=== PATIENT | female | born 1980 | race Caucasian/White ===

== ENCOUNTER 2016-12-14 11:24 | Emergency (ER) | payer MEDICAID ==
[2016-12-14 11:37] VITALS: BP 109/75
--- NOTE | 2016-12-14 11:46 | ER Document Report ---
ED Medical Screen (RME) - General Stated Complaint: CONGESTION/RASH Mode of Arrival: Ambulatory Notes: She presents to the emergency department with chest congestion and cough for one week. She reports is making her gag. Denies fever. Reports vomiting from gag. Denies abdominal pain. TRAVEL OUTSIDE OF THE [place] IN LAST 30 DAYS: No - Related Data Allergies/Adverse Reactions: hydromorphone HCl [From Dilaudid] Allergy (Intermediate, Verified 09/05/14 18:46 ) thrush sulfamethoxazole [From Septra] Allergy (Intermediate, Verified 09/05/14 18:46) thrush trimethoprim [From Septra] Allergy (Intermediate, Verified 09/05/14 18:46) thrush duloxetine HCl [From Cymbalta] Allergy (Verified 09/05/14 18:46) milnacipran HCl [From Savella] Allergy (Verified 09/05/14 18:46) Past Medical History Neurological Medical History: Reports: Hx Migraine Renal/ Medical History: Reports: Hx Kidney Stones GI Medical History: Reports: Hx Crohn's Disease, Hx Diverticulitis, Hx Gastroesophageal Reflux Disease Musculoskeltal Medical History: Reports Hx Arthritis, Reports Hx Fibromyalgia Psychiatric Medical History: Reports: Hx Attention Deficit Hyperactivity Disorder, Hx Bipolar Disorder, Hx Obsessive Compulsive Disorder Past Surgical History: Reports: Hx Genitourinary Surgery - Bladder Tack, Hx Hysterectomy - total, Hx Tonsillectomy - Immunizations Hx Diphtheria, Pertussis, Tetanus Vaccination: No Physical Exam - Vital signs Vitals: Temp Pulse Resp BP Pulse Ox 98.1 F 104 H 16 109/75 97 12/14/16 11:36 12/14/16 11:36 12/14/16 11:36 12/14/16 11:36 12/14/16 11:36 Course - Vital Signs Vital signs: Temp Pulse Resp BP Pulse Ox 98.1 F 104 H 16 109/75 97 12/14/16 11:36 12/14/16 11:36 12/14/16 11:36 12/14/16 11:36 12/14/16 11:36
--- NOTE | 2016-12-14 13:08 | ER Document Report ---
ED General - General Chief Complaint: Cough Stated Complaint: CONGESTION/RASH Mode of Arrival: Ambulatory Information source: Patient TRAVEL OUTSIDE OF THE [place] IN LAST 30 DAYS: No - HPI Onset: Last week Onset/Duration: Intermittent - This 36-year-old female presents to the emergency room with a coarse cough sore throat full-size is an dental discomfort which is been ongoing greater than weak. - Related Data Allergies/Adverse Reactions: hydromorphone HCl [From Dilaudid] Allergy (Intermediate, Verified 12/14/16 11:46 ) thrush sulfamethoxazole [From Septra] Allergy (Intermediate, Verified 12/14/16 11:46) thrush trimethoprim [From Septra] Allergy (Intermediate, Verified 12/14/16 11:46) thrush duloxetine HCl [From Cymbalta] Allergy (Verified 12/14/16 11:46) milnacipran HCl [From Savella] Allergy (Verified 12/14/16 11:46) Past Medical History - General Information source: Patient - Social History Smoking Status: Never Smoker Chew tobacco use (# tins/day): No Frequency of alcohol use: None Drug Abuse: None Family History: CAD, CVA, DM, Hyperlipidemia, Hypertension, Malignancy Patient has suicidal ideation: No Patient has homicidal ideation: No Neurological Medical History: Reports: Hx Migraine Renal/ Medical History: Reports: Hx Kidney Stones. Denies: Hx Peritoneal Dialysis GI Medical History: Reports: Hx Crohn's Disease, Hx Diverticulitis, Hx Gastroesophageal Reflux Disease Musculoskeltal Medical History: Reports Hx Arthritis, Reports Hx Fibromyalgia Psychiatric Medical History: Reports: Hx Attention Deficit Hyperactivity Disorder, Hx Bipolar Disorder, Hx Obsessive Compulsive Disorder Past Surgical History: Reports: Hx Genitourinary Surgery - Bladder Tack, Hx Hysterectomy - total, Hx Tonsillectomy - Immunizations Hx Diphtheria, Pertussis, Tetanus Vaccination: No Review of Systems - Review of Systems Constitutional: No symptoms reported EENT: No symptoms reported Cardiovascular: No symptoms reported Respiratory: No symptoms reported Gastrointestinal: No symptoms reported Genitourinary: No symptoms reported Female Genitourinary: No symptoms reported Musculoskeletal: No symptoms reported Skin: No symptoms reported Hematologic/Lymphatic: No symptoms reported Neurological/Psychological: No symptoms reported Physical Exam - Vital signs Vitals: Temp Pulse Resp BP Pulse Ox 98.1 F 104 H 16 109/75 97 12/14/16 11:36 12/14/16 11:36 12/14/16 11:36 12/14/16 11:36 12/14/16 11:36 Interpretation: Normal - General General appearance: Appears well, Alert - HEENT Head: Normocephalic, Atraumatic Eyes: Normal Pupils: PERRL Mouth/Lips: Caries, Dental fracture - Respiratory Respiratory status: No respiratory distress Chest status: Nontender Breath sounds: Rhonchi Chest palpation: Normal - Cardiovascular Rhythm: Regular Heart sounds: Normal auscultation Murmur: No - Abdominal Inspection: Normal Distension: No distension Bowel sounds: Normal Tenderness: Nontender Organomegaly: No organomegaly - Back Back: Normal, Nontender - Extremities General upper extremity: Normal inspection, Nontender, Normal color, Normal ROM , Normal temperature General lower extremity: Normal inspection, Nontender, Normal color, Normal ROM , Normal temperature, Normal weight bearing. No: Gordon's sign - Neurological Neuro grossly intact: Yes Cognition: Normal Orientation: AAOx4 [place] Coma Scale Eye Opening: Spontaneous [place] Coma Scale Verbal: Oriented [place] Coma Scale Motor: Obeys Commands [place] Coma Scale Total: 15 Speech: Normal Motor strength normal: LUE, RUE, LLE, RLE Sensory: Normal - Psychological Associated symptoms: Normal affect, Normal mood - Skin Skin Temperature: Warm Skin Moisture: Dry Skin Color: Normal Course - Vital Signs Vital signs: Temp Pulse Resp BP Pulse Ox 98.1 F 104 H 16 109/75 97 12/14/16 11:36 12/14/16 11:36 12/14/16 11:36 12/14/16 11:36 12/14/16 11:36 Discharge - Discharge Clinical Impression: Pharyngitis Qualifiers: Pharyngitis/tonsillitis etiology: other specified organisms Qualified Code(s): J02.8 - Acute pharyngitis due to other specified organisms Sinusitis Qualifiers: Sinusitis location: pansinusitis Chronicity: acute Recurrence: non-recurrent Qualified Code(s): J01.40 - Acute pansinusitis, unspecified Disposition: HOME, SELF-CARE Additional Instructions: Follow-up with private doctor in 1 to 2 days for final radiology readings please return to the emergency room for any change worsening condition. Follow up with private M.D. for all other routine health care needs.Sinusitis You have sinusitis, an infection of the sinus cavities of the face. The sinuses are air-filled chambers which open into the inside of the nose. Bacteria and pus fill a sinus, causing pain, drainage, and fever. Sinusitis is treated with antibiotics. Often, expectorants (to thin the sinus mucous) or decongestants (to reduce swelling) are prescribed as well. Healing requires seven to 10 days. Avoid chemical fumes, pollens, dusts, and smoke (especially cigarette smoke ). Keep the air humidified in your bedroom and work area and take plenty of liquids by mouth. This condition can be serious if the infection spreads. If your symptoms worsen, or if you develop severe headache, high fever, stiff neck, or a rash, you must call the doctor or return for re-evaluation. Prescriptions: Amox Tr/Potassium Clavulanate [Augmentin 875-125 Tablet] 1 tab PO BID 10 Days Prednisone [Deltasone 20 mg Tablet] 3 tab PO DAILY 5 Days
== END 2016-12-14 13:29 | disposition home or self-care (01) ==
LOC: ER 11:24
DX: J02.9 Acute pharyngitis, unspecified (principal); J01.40 Acute pansinusitis, unspecified; R05 Cough; R09.89 Other specified symptoms and signs involving the circulatory and respiratory systems; K02.9 Dental caries, unspecified; Z88.5 Allergy status to narcotic agent; Z88.1 Allergy status to other antibiotic agents; Z88.8 Allergy status to other drugs, medicaments and biological substances; Z88.6 Allergy status to analgesic agent
CPT/HCPCS: 71020; 99283

== ENCOUNTER 2017-01-22 21:07 | Emergency (ER) | payer MEDICAID ==
[2017-01-22] MEDS ORDERED: ASPIRIN 81 MG TABLET, CHEWABLE PO ONE (21:24)
--- NOTE | 2017-01-22 21:25 | ER Document Report ---
ED Medical Screen (RME) - General Stated Complaint: CHEST PAIN Mode of Arrival: Ambulatory Information source: Patient Notes: Patient complains of left-sided chest pain that goes into her jaw. Patient reports pain started 2 days ago. Patient does complain of some nausea. Patient denies any cough or cold symptoms. hx: Lyme's disease, [place] spotted fever, migraine I have greeted and performed a rapid initial assessment of this patient. A comprehensive ED assessment and evaluation of the patient, analysis of test results and completion of the medical decision making process will be conducted by additional ED providers. TRAVEL OUTSIDE OF THE [place] IN LAST 30 DAYS: No - Related Data Allergies/Adverse Reactions: hydromorphone HCl [From Dilaudid] Allergy (Intermediate, Verified 01/22/17 21:23 ) thrush sulfamethoxazole [From Septra] Allergy (Intermediate, Verified 01/22/17 21:23) thrush trimethoprim [From Septra] Allergy (Intermediate, Verified 01/22/17 21:23) thrush duloxetine HCl [From Cymbalta] Allergy (Verified 01/22/17 21:23) milnacipran HCl [From Savella] Allergy (Verified 01/22/17 21:23) Past Medical History Neurological Medical History: Reports: Hx Migraine Renal/ Medical History: Reports: Hx Kidney Stones. Denies: Hx Peritoneal Dialysis GI Medical History: Reports: Hx Crohn's Disease, Hx Diverticulitis, Hx Gastroesophageal Reflux Disease Musculoskeltal Medical History: Reports Hx Arthritis, Reports Hx Fibromyalgia Psychiatric Medical History: Reports: Hx Attention Deficit Hyperactivity Disorder, Hx Bipolar Disorder, Hx Obsessive Compulsive Disorder Past Surgical History: Reports: Hx Genitourinary Surgery - Bladder Tack, Hx Hysterectomy, Hx Tonsillectomy - Immunizations Hx Diphtheria, Pertussis, Tetanus Vaccination: No Physical Exam - Cardiovascular Rhythm: Regular Heart sounds: S1 appreciated, S2 appreciated Murmur: No
[2017-01-22 22:20] LABS: APPEARANCE,URINE SLIGHTLY-CLOUDY; BILIRUBIN,URINE NEGATIVE (NEGATIVE); GLUCOSE, URINE NEGATIVE (NEGATIVE); KETONES,URINE TRACE mg/dL (NEGATIVE); LEUKOCYTE ESTERASE,URINE LARGE (NEGATIVE); NITRITE,URINE NEGATIVE (NEGATIVE); PROTEIN,URINE 30 mg/dL (NEGATIVE); URINE SPECIFIC GRAVITY 1.038; UROBILINOGEN,URINE NEGATIVE mg/dL (<2.0)
[2017-01-22 22:21] LABS: ALANINE AMINOTRANSFERASE 24 U/L (9-52); ALKALINE PHOSPHATASE 76 U/L (38-126); ANION GAP 12 (5-19); ASPARTATE AMINO TRANSFERASE 15 U/L (14-36); BILIRUBIN,TOTAL 0.4 mg/dL (0.2-1.3); BLOOD UREA NITROGEN 11 mg/dL (7-20); CALCIUM 9.4 mg/dL (8.4-10.2); CARBON DIOXIDE 26 mmol/L (22-30); CHLORIDE 105 mmol/L (98-107); CREATINE KINASE 180 U/L (30-135); CREATININE RESULT 0.91 mg/dL (0.52-1.25); GLUCOSE 96 mg/dL (75-110); LIPASE 35.5 U/L (23-300)
[2017-01-22 22:24] LABS: URINE BARBITURATES SCREEN NEGATIVE; URINE METHADONE SCREEN NEGATIVE; URINE OPIATES LOW UNCONFIRMED POSITIVE; URINE PHENCYCLIDINE SCREEN NEGATIVE
[2017-01-22 22:34] LABS: CREATINE KINASE MB < 0.22 ng/mL (<4.55); TROPONIN I < 0.012 ng/mL
[2017-01-22 22:40] LABS: ABSOLUTE EOSINOPHILS # (AUTO) 0.2 10^3/uL (0.0-0.6); ABSOLUTE MONOCYTES (AUTO) 0.4 10^3/uL (0.1-1.4); ABSOLUTE NEUT (AUTO) 3.8 10^3/uL (1.7-8.2); BASOPHILS % (AUTO) 0.6 % (0-2); EOSINOPHILS % (AUTO) 2.8 % (0-6); HEMATOCRIT 36.3 % (36.0-47.0); HEMOGLOBIN 12.1 g/dL (12.0-15.5); LYMPHOCYTES % (AUTO) 40.2 % (13-45); MEAN CORPUSCULAR HEMOGLOBIN 28.6 pg (27.0-33.4); MEAN CORPUSCULAR HGB CONC 33.4 g/dL (32.0-36.0); MEAN CORPUSCULAR VOLUME 86 fl (80-97); MONOCYTES % (AUTO) 5.6 % (3-13); RED BLOOD COUNT 4.24 10^6/uL (3.72-5.28); RED CELL DISTRIBUTION WIDTH 13.8 % (11.5-14.0); SEGMENTED NEUTROPHILS % (AUTO) 50.8 % (42-78); WHITE BLOOD COUNT 7.5 10^3/uL (4.0-10.5)
--- NOTE | 2017-01-24 08:14 | EKG REPORT ---
SEVERITY:- NORMAL ECG - SINUS RHYTHM : Confirmed by: Ilene Jerome MD 24-Jan-2017 08:13:05
== END 2017-01-23 03:53 | disposition left against medical advice (07) ==
LOC: ER 21:07
DX: R07.9 Chest pain, unspecified (principal); R68.84 Jaw pain; Z88.5 Allergy status to narcotic agent; Z88.1 Allergy status to other antibiotic agents; Z88.8 Allergy status to other drugs, medicaments and biological substances; Z53.20 Procedure and treatment not carried out because of patient's decision for unspecified reasons
CPT/HCPCS: 36415; 71020; 80053; 80307; 81001; 82550; 82553; 83690; 84484; 85025; 93005; 93010; 99281

== ENCOUNTER 2017-02-06 14:15 | Emergency (ER) | payer MEDICAID ==
--- NOTE | 2017-02-06 14:33 | ER Document Report ---
ED Medical Screen (RME) - General Stated Complaint: ABDOMINAL PAIN Notes: 36 yo female c/o epigastric and RLQ pain x 1 week. + hx/o diverticulitic and colitis. + dysuria. + nausea, vomited x 1. no fever. pain aggrevated with eating abdomen soft, generalized tenderness. + guarding TRAVEL OUTSIDE OF THE [place] IN LAST 30 DAYS: No - Related Data Allergies/Adverse Reactions: hydromorphone HCl [From Dilaudid] Allergy (Intermediate, Verified 01/22/17 21:23 ) thrush sulfamethoxazole [From Septra] Allergy (Intermediate, Verified 01/22/17 21:23) thrush trimethoprim [From Septra] Allergy (Intermediate, Verified 01/22/17 21:23) thrush duloxetine HCl [From Cymbalta] Allergy (Verified 01/22/17 21:23) milnacipran HCl [From Savella] Allergy (Verified 01/22/17 21:23) Past Medical History Neurological Medical History: Reports: Hx Migraine Renal/ Medical History: Reports: Hx Kidney Stones. Denies: Hx Peritoneal Dialysis GI Medical History: Reports: Hx Crohn's Disease, Hx Diverticulitis, Hx Gastroesophageal Reflux Disease Musculoskeltal Medical History: Reports Hx Arthritis, Reports Hx Fibromyalgia Psychiatric Medical History: Reports: Hx Attention Deficit Hyperactivity Disorder, Hx Bipolar Disorder, Hx Obsessive Compulsive Disorder Past Surgical History: Reports: Hx Genitourinary Surgery - Bladder Tack, Hx Hysterectomy, Hx Tonsillectomy - Immunizations Hx Diphtheria, Pertussis, Tetanus Vaccination: No
[2017-02-06 14:47] LABS: ABSOLUTE BASOPHILS # (AUTO) 0.1 10^3/uL (0.0-0.2); ABSOLUTE EOSINOPHILS # (AUTO) 0.1 10^3/uL (0.0-0.6); ABSOLUTE LYMPHOCYTES (AUTO) 2.3 10^3/uL (0.5-4.7); ABSOLUTE MONOCYTES (AUTO) 0.5 10^3/uL (0.1-1.4); ABSOLUTE NEUT (AUTO) 6.1 10^3/uL (1.7-8.2); BASOPHILS % (AUTO) 0.7 % (0-2); EOSINOPHILS % (AUTO) 0.8 % (0-6); HEMOGLOBIN 14.4 g/dL (12.0-15.5); HGB HCT DIFFERENCE 0.2; LYMPHOCYTES % (AUTO) 25.8 % (13-45); MEAN CORPUSCULAR HEMOGLOBIN 28.4 pg (27.0-33.4); MEAN CORPUSCULAR HGB CONC 33.6 g/dL (32.0-36.0); MEAN CORPUSCULAR VOLUME 85 fl (80-97); MONOCYTES % (AUTO) 5.4 % (3-13); RED BLOOD COUNT 5.08 10^6/uL (3.72-5.28); RED CELL DISTRIBUTION WIDTH 13.4 % (11.5-14.0); SEGMENTED NEUTROPHILS % (AUTO) 67.3 % (42-78); WHITE BLOOD COUNT 9.1 10^3/uL (4.0-10.5)
[2017-02-06 14:55] LABS: APPEARANCE,URINE CLOUDY; BILIRUBIN,URINE NEGATIVE (NEGATIVE); GLUCOSE, URINE NEGATIVE (NEGATIVE); KETONES,URINE NEGATIVE (NEGATIVE); LEUKOCYTE ESTERASE,URINE LARGE (NEGATIVE); NITRITE,URINE NEGATIVE (NEGATIVE); PROTEIN,URINE 30 mg/dL (NEGATIVE); URINE SPECIFIC GRAVITY 1.025; UROBILINOGEN,URINE NEGATIVE mg/dL (<2.0)
[2017-02-06 15:05] LABS: ALANINE AMINOTRANSFERASE 31 U/L (9-52); ALBUMIN 4.9 g/dL (3.5-5.0); ALKALINE PHOSPHATASE 84 U/L (38-126); ANION GAP 16 (5-19); ASPARTATE AMINO TRANSFERASE 16 U/L (14-36); BILIRUBIN,TOTAL 0.6 mg/dL (0.2-1.3); BLOOD UREA NITROGEN 9 mg/dL (7-20); CALCIUM 10.5 mg/dL (8.4-10.2); CARBON DIOXIDE 23 mmol/L (22-30); CHLORIDE 104 mmol/L (98-107); CREATININE RESULT 0.85 mg/dL (0.52-1.25); GLUCOSE 119 mg/dL (75-110); LIPASE 87.1 U/L (23-300); POTASSIUM 4.2 mmol/L (3.6-5.0); SODIUM 142.9 mmol/L (137-145); TOTAL PROTEIN 8.3 g/dL (6.3-8.2)
[2017-02-06] MEDS ORDERED: NORMAL SALINE 1000 ML 1,000 ML IV PRN (15:47)
[2017-02-06] MEDS ORDERED: ONDANSETRON HCL INJ/PF 4 MG/2 ML SDV IV ONE (15:47)
[2017-02-06] MEDS ORDERED: CEFTRIAXONE 1 GM/D5W RTU 50 ML IV ONE (15:48)
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
[2017-02-06] MEDS ORDERED: TRAMADOL HCL 50 MG TABLET PO ONE (17:57)
== END 2017-02-06 17:00 | disposition home or self-care (01) ==
LOC: ER 14:15
DX: N12 Tubulo-interstitial nephritis, not specified as acute or chronic (principal); R10.9 Unspecified abdominal pain; R10.11 Right upper quadrant pain; Z88.3 Allergy status to other anti-infective agents; Z87.442 Personal history of urinary calculi; Z90.710 Acquired absence of both cervix and uterus
CPT/HCPCS: 99284; 96375; 96365; 36415; 83690; 84703; 85025; 80053; 81001; 74177; J2405; J7030; J0696

== ENCOUNTER 2017-03-19 09:04 | Emergency (ER) | payer MEDICAID ==
[2017-03-19] MEDS ORDERED: ONDANSETRON 4 MG TAB.RAPDIS SL ONE (10:24)
[2017-03-19] MEDS ORDERED: OXYCODONE-ACETAMINOPHEN 5-325 MG TABLET PO ONE (10:24)
--- NOTE | 2017-03-19 10:27 | ER Document Report ---
ED Medical Screen (RME) - General Chief Complaint: Abdominal Pain Stated Complaint: BACK PAIN AND BLOOD IN STOOL Time seen by provider: 10:26 Mode of Arrival: Ambulatory Information source: Patient TRAVEL OUTSIDE OF THE [place] IN LAST 30 DAYS: No - HPI Patient complains to provider of: abdominal pain, bloody mucousy stool Onset: Other - 2-3 days Onset/Duration: Gradual, Persistent, Worse Quality of pain: Achy, Cramping Severity: Moderate Pain Level: 3 Associated Symptoms: Diarrhea, Nausea Exacerbated by: Food Relieved by: Denies Similar symptoms previously: Yes Recently seen / treated by doctor: No Notes: 03/19/17 10:26 Patient is a 36-year-old female who presents to the emergency room complaining of crampy diffuse lower abdominal pain, bloody mucousy stools, with diarrhea, history of similar symptoms with diverticulitis in the past, patient reports a history of a full hysterectomy - Related Data Allergies/Adverse Reactions: hydromorphone HCl [From Dilaudid] Allergy (Intermediate, Verified 03/19/17 09:10 ) thrush sulfamethoxazole [From Septra] Allergy (Intermediate, Verified 03/19/17 09:10) thrush trimethoprim [From Septra] Allergy (Intermediate, Verified 03/19/17 09:10) thrush duloxetine HCl [From Cymbalta] Allergy (Verified 03/19/17 09:10) milnacipran HCl [From Savella] Allergy (Verified 03/19/17 09:10) Past Medical History Neurological Medical History: Reports: Hx Migraine Renal/ Medical History: Reports: Hx Kidney Stones. Denies: Hx Peritoneal Dialysis GI Medical History: Reports: Hx Crohn's Disease, Hx Diverticulitis, Hx Gastroesophageal Reflux Disease Musculoskeltal Medical History: Reports Hx Arthritis, Reports Hx Fibromyalgia Psychiatric Medical History: Reports: Hx Attention Deficit Hyperactivity Disorder, Hx Bipolar Disorder, Hx Obsessive Compulsive Disorder Past Surgical History: Reports: Hx Genitourinary Surgery - Bladder Tack, Hx Hysterectomy, Hx Tonsillectomy - Immunizations Hx Diphtheria, Pertussis, Tetanus Vaccination: No Physical Exam - Vital signs Vitals: Temp Pulse Resp BP Pulse Ox 98.6 F 86 18 140/99 H 99 03/19/17 09:12 03/19/17 09:12 03/19/17 09:12 03/19/17 09:12 03/19/17 09:12 Course - Vital Signs Vital signs: Temp Pulse Resp BP Pulse Ox 98.6 F 86 18 140/99 H 99 03/19/17 09:12 03/19/17 09:12 03/19/17 09:12 03/19/17 09:12 03/19/17 09:12
[2017-03-19 10:53] LABS: ABSOLUTE EOSINOPHILS # (AUTO) 0.1 10^3/uL (0.0-0.6); ABSOLUTE MONOCYTES (AUTO) 0.4 10^3/uL (0.1-1.4); ABSOLUTE NEUT (AUTO) 6.3 10^3/uL (1.7-8.2); BASOPHILS % (AUTO) 0.6 % (0-2); EOSINOPHILS % (AUTO) 1.4 % (0-6); HEMATOCRIT 38.9 % (36.0-47.0); HGB HCT DIFFERENCE 0.1; LYMPHOCYTES % (AUTO) 22.7 % (13-45); MEAN CORPUSCULAR HEMOGLOBIN 28.4 pg (27.0-33.4); MEAN CORPUSCULAR HGB CONC 33.4 g/dL (32.0-36.0); MEAN CORPUSCULAR VOLUME 85 fl (80-97); RED BLOOD COUNT 4.57 10^6/uL (3.72-5.28); RED CELL DISTRIBUTION WIDTH 13.9 % (11.5-14.0); SEGMENTED NEUTROPHILS % (AUTO) 71.3 % (42-78); WHITE BLOOD COUNT 8.8 10^3/uL (4.0-10.5)
[2017-03-19 10:55] LABS: APPEARANCE,URINE CLEAR; BILIRUBIN,URINE NEGATIVE (NEGATIVE); GLUCOSE, URINE NEGATIVE (NEGATIVE); KETONES,URINE NEGATIVE (NEGATIVE); LEUKOCYTE ESTERASE,URINE SMALL (NEGATIVE); NITRITE,URINE NEGATIVE (NEGATIVE); PROTEIN,URINE NEGATIVE (NEGATIVE); URINE SPECIFIC GRAVITY 1.028; UROBILINOGEN,URINE NEGATIVE mg/dL (<2.0)
[2017-03-19 11:15] LABS: ALANINE AMINOTRANSFERASE 19 U/L (9-52); ALBUMIN 4.8 g/dL (3.5-5.0); ALKALINE PHOSPHATASE 81 U/L (38-126); ANION GAP 13 (5-19); ASPARTATE AMINO TRANSFERASE 14 U/L (14-36); BILIRUBIN,DIRECT 0.3 mg/dL (0.0-0.4); BILIRUBIN,TOTAL 0.6 mg/dL (0.2-1.3); BLOOD UREA NITROGEN 14 mg/dL (7-20); CALCIUM 9.9 mg/dL (8.4-10.2); CARBON DIOXIDE 25 mmol/L (22-30); CHLORIDE 106 mmol/L (98-107); CREATININE RESULT 0.66 mg/dL (0.52-1.25); GLUCOSE 111 mg/dL (75-110); LIPASE 42.8 U/L (23-300); POTASSIUM 4.6 mmol/L (3.6-5.0); SODIUM 143.9 mmol/L (137-145)
--- NOTE | 2017-03-19 11:36 | ER Document Report ---
ED GI/ - General Chief Complaint: Abdominal Pain Stated Complaint: BACK PAIN AND BLOOD IN STOOL Time seen by provider: 11:31 Mode of Arrival: Ambulatory Information source: Patient Notes: 36-year-old female presents to ED for complaints of cramping and diffuse to upper and lower abdominal pain with nausea and mucous bloody stools with diarrhea. States she has a history of diverticulitis with similar symptoms. She was seen in the pit patient in triage and given pain medicine and nausea medicine will follow-up with the labs. TRAVEL OUTSIDE OF THE [place] IN LAST 30 DAYS: No - HPI Patient complains to provider of: Abdominal pain, Diarrhea - Blood in her stools Onset: Other - 2-3 days Timing/Duration: Persistent Quality of pain: Achy, Cramping Severity at maximum: Severe Severity in ED: Moderate Pain Level: 3 Location: Other - Generalized Vaginal bleeding (Compared to normal period): None Menstrual period history: Post-menopausal - Hysterectomy Associated symptoms: Nausea Exacerbated by: Movement, Walking Relieved by: Denies Similar symptoms previously: Yes Recently seen / treated by doctor: No - Related Data Allergies/Adverse Reactions: hydromorphone HCl [From Dilaudid] Allergy (Intermediate, Verified 03/19/17 09:10 ) thrush sulfamethoxazole [From Septra] Allergy (Intermediate, Verified 03/19/17 09:10) thrush trimethoprim [From Septra] Allergy (Intermediate, Verified 03/19/17 09:10) thrush duloxetine HCl [From Cymbalta] Allergy (Verified 03/19/17 09:10) milnacipran HCl [From Savella] Allergy (Verified 03/19/17 09:10) Past Medical History - General Information source: Patient - Social History Smoking Status: Never Smoker Cigarette use (# per day): No Chew tobacco use (# tins/day): No Smoking Education Provided: No Frequency of alcohol use: None Drug Abuse: None Occupation: leighesser Lives with: Family - Son Family History: CAD, CVA, Hyperlipidemia, Hypertension, Malignancy, Thyroid Disfunction Patient has suicidal ideation: No Patient has homicidal ideation: No - Past Medical History Cardiac Medical History: Reports: None Pulmonary Medical History: Reports: None EENT Medical History: Reports: None Neurological Medical History: Reports: Hx Migraine Endocrine Medical History: Reports: None Renal/ Medical History: Reports: Hx Kidney Stones Malignancy Medical History: Reports: None GI Medical History: Reports: Hx Crohn's Disease, Hx Diverticulitis, Hx Gastroesophageal Reflux Disease, Hx Colonoscopy, Hx Endoscopy Musculoskeltal Medical History: Reports Hx Arthritis, Reports Hx Fibromyalgia Skin Medical History: Reports None Psychiatric Medical History: Reports: Hx Attention Deficit Hyperactivity Disorder, Hx Obsessive Compulsive Disorder Traumatic Medical History: Reports: None Past Surgical History: Reports: Hx Genitourinary Surgery - Bladder Tack, Hx Hysterectomy, Hx Tonsillectomy - Immunizations Hx Diphtheria, Pertussis, Tetanus Vaccination: No Review of Systems - Review of Systems Constitutional: No symptoms reported EENT: No symptoms reported Cardiovascular: No symptoms reported Respiratory: No symptoms reported Gastrointestinal: Abdominal pain, Diarrhea, Nausea Genitourinary: No symptoms reported Female Genitourinary: No symptoms reported Musculoskeletal: No symptoms reported Skin: No symptoms reported Hematologic/Lymphatic: No symptoms reported Neurological/Psychological: No symptoms reported -: Yes All other systems reviewed and negative Physical Exam - Vital signs Vitals: Temp Pulse Resp BP Pulse Ox 98.6 F 86 18 140/99 H 99 03/19/17 09:12 03/19/17 09:12 03/19/17 09:12 03/19/17 09:12 03/19/17 09:12 Interpretation: Normal - General General appearance: Appears well, Alert - HEENT Head: Normocephalic, Atraumatic Eyes: Normal Pupils: PERRL - Respiratory Respiratory status: No respiratory distress Chest status: Nontender Breath sounds: Normal Chest palpation: Normal - Cardiovascular Rhythm: Regular Heart sounds: Normal auscultation Murmur: No - Abdominal Inspection: Normal Distension: No distension Bowel sounds: Normal Tenderness: Tender - Generalized Organomegaly: No organomegaly - Back Back: Normal, Nontender - Extremities General upper extremity: Normal inspection, Nontender, Normal color, Normal ROM , Normal temperature General lower extremity: Normal inspection, Nontender, Normal color, Normal ROM , Normal temperature, Normal weight bearing. No: Gordon's sign - Neurological Neuro grossly intact: Yes Cognition: Normal Orientation: AAOx4 [place] Coma Scale Eye Opening: Spontaneous [place] Coma Scale Verbal: Oriented [place] Coma Scale Motor: Obeys Commands [place] Coma Scale Total: 15 Speech: Normal Motor strength normal: LUE, RUE, LLE, RLE Sensory: Normal - Psychological Associated symptoms: Normal affect, Normal mood - Skin Skin Temperature: Warm Skin Moisture: Dry Skin Color: Normal Course - Vital Signs Vital signs: Temp Pulse Resp BP Pulse Ox 98.1 F 75 16 130/86 H 97 03/19/17 13:46 03/19/17 13:46 03/19/17 13:46 03/19/17 13:46 03/19/17 13:46 - Laboratory Result Diagrams: 03/19/17 10:30 03/19/17 10:30 Laboratory results interpreted by me: 03/19/17 03/19/17 10:30 10:30 Glucose 111 H Ur Leukocyte Esterase SMALL H Discharge - Discharge Clinical Impression: Abdominal pain Qualifiers: Abdominal location: generalized Qualified Code(s): R10.84 - Generalized abdominal pain Condition: Stable Disposition: HOME, SELF-CARE Instructions: Family Physicians / Practices Additional Instructions: ABDOMINAL PAIN: There are many causes of abdominal pain. Pain can mean a serious problem requiring surgery (such as appendicitis). It can also be an innocent problem that goes away on its own (such as a viral infection). Often, time must pass to determine the cause of pain. The physician does not feel that hospitalization is necessary, at present. Things may change within the next 24 hours. Call the doctor or come back for re- examination if any problems occur, such as: (1) Pain that becomes more severe, steady, or becomes concentrated in one specific area. Also, pain that is more severe with movement or coughing. (2) Vomiting that persists or becomes more frequent. (3) Blood in the vomitus, urine, or bowel movements. Blood in the stool may have a tarry or black appearance. (4) Shaking chills or fever greater than 100 degrees F. (5) The abdomen becomes more distended or swollen. (6) Bowel movements cease. (7) Failure to improve as expected. Ciprofloxacin You have been given an antibacterial agent, ciprofloxacin (Cipro). This medicine is not related to the penicillins, sulfas, cephalosporins, or tetracyclines. It is often given to patients who are allergic to these drugs. It has been chosen for you either because other drugs are not appropriate, or because of the nature of your problem. Cipro should not be taken with antacids, as these can decrease its effectiveness. It can be taken without regard to meals. CIPRO SHOULD NOT BE TAKEN BY CHILDREN, NURSING WOMEN, OR WOMEN. Although Cipro is usually well-tolerated, common side effects can include nausea and diarrhea. Contact your doctor if you experience any unusual symptoms while on this medication, such as joint pain or swelling, shortness of breath, wheezing, faintness, or hives. Metronidazole Metronidazole (Flagyl) has been prescribed. This medication is used to kill a type of bacteria called anaerobes, and protozoan parasites such as trichomonas and Giardia. Flagyl often causes a metallic taste in the mouth and mild nausea. Do not use alcohol in any form with Flagyl (including alcohol in medication elixirs). Flagyl interacts with alcohol to cause flushing, palpitations, headache, stomach cramps, and vomiting. Do not use Flagyl if you are taking Antabuse (disulfiram). Call the doctor at once if you develop rash, shortness of breath, itching, or lightheadedness. ANTINAUSEA MEDICATION: You have been given a medication to suppress nausea and vomiting. This type of medication can be given as a shot, pill, or suppository. It will usually last for many hours. Pills and shots usually last six to eight hours, suppositories last about 12 hours. For the typical illness, only one or two doses of the medication may be necessary. Mild lightheadedness may occur. This type of medicine can cause drowsiness. Do not drive or operate dangerous machinery while under its influence. Do not mix with alcohol. See your doctor at once if you have muscle spasms or tightness, or uncontrollable motions (particularly of the neck, mouth, or jaw). Persistent vomiting or severe lightheadedness should also be evaluated by the physician. Intravenous (IV) Fluids As part of your care today, you received intravenous (IV) fluids. IV fluids are administered to patients who are dehydrated or to those who have certain chemical (electrolyte) abnormalities that need correcting. FOLLOW-UP CARE: If you have been referred to a physician for follow-up care, call the physician s office for an appointment as you were instructed or within the next two days. If you experience worsening or a significant change in your symptoms, notify the physician immediately or return to the Emergency Department at any time for re-evaluation. Prescriptions: Ciprofloxacin HCl [Cipro 500 mg Tablet] 500 mg PO BID #20 tablet Metronidazole [Flagyl 500 mg Tablet] 500 mg PO BID #14 tablet Promethazine HCl [Phenergan 25 mg Tablet] 25 mg PO Q6H PRN #15 tablet PRN Reason: Forms: Elevated Blood Pressure
[2017-03-19 13:52] VITALS: BP 130/86
== END 2017-03-19 14:00 | disposition home or self-care (01) ==
LOC: ER 09:04
DX: R10.84 Generalized abdominal pain (principal); R11.0 Nausea; R19.7 Diarrhea, unspecified; K92.1 Melena; Z87.19 Personal history of other diseases of the digestive system; Z90.710 Acquired absence of both cervix and uterus; Z88.5 Allergy status to narcotic agent; Z88.1 Allergy status to other antibiotic agents; Z88.6 Allergy status to analgesic agent; Z87.442 Personal history of urinary calculi
CPT/HCPCS: 99284; 36415; 87086; 83690; 85025; 80053; 81001; S0119

== ENCOUNTER 2017-04-18 16:32 | Emergency (ER) | payer MEDICAID ==
[2017-04-18] MEDS ORDERED: LIDOCAINE 1% INJ-PF (10 MG/ML) 30 ML SDV INJ ONE (17:11)
[2017-04-18] MEDS ORDERED: DIPH/PERTUSS(ACELL)/TETANUS VAC/PF 0.5 ML SYR (>=10YO) IM ONE (17:11)
[2017-04-18] MEDS ORDERED: OXYCODONE-ACETAMINOPHEN 5-325 MG TABLET PO ONE (17:11)
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
[2017-04-18 19:53] VITALS: BP 121/89
== END 2017-04-18 19:53 | disposition home or self-care (01) ==
LOC: ER 16:32
PROC: 0HQ1XZZ Repair Face Skin, External Approach (ICD-10-PCS; principal; 2017-04-18)
DX: S09.12XA Laceration of muscle and tendon of head, initial encounter (principal); S01.119A Laceration without foreign body of unspecified eyelid and periocular area, initial encounter; S01.81XA Laceration without foreign body of other part of head, initial encounter; S16.1XXA Strain of muscle, fascia and tendon at neck level, initial encounter; S40.022A Contusion of left upper arm, initial encounter; S40.021A Contusion of right upper arm, initial encounter; S50.10XA Contusion of unspecified forearm, initial encounter; S50.00XA Contusion of unspecified elbow, initial encounter; S60.512A Abrasion of left hand, initial encounter; Y04.2XXA Assault by strike against or bumped into by another person, initial encounter; Y00.XXXA Assault by blunt object, initial encounter; Y92.009 Unspecified place in unspecified non-institutional (private) residence as the place of occurrence of the external cause; Z88.5 Allergy status to narcotic agent; Z88.1 Allergy status to other antibiotic agents; Z88.6 Allergy status to analgesic agent
CPT/HCPCS: 12013; 99284; 90471; 70450; 70486; 72125; 90715; J3490

== ENCOUNTER 2017-04-28 21:07 | Emergency (ER) | payer MEDICAID ==
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
[2017-04-28] MEDS ORDERED: ONDANSETRON ODT 4 MG TAB (6 TAB/DSPK) PO PRN (23:33)
[2017-04-28] MEDS ORDERED: ACETAMINOPHEN 325 MG TABLET PO ONE (23:33)
[2017-04-29 00:04] VITALS: BP 117/82
== END 2017-04-28 23:50 | disposition home or self-care (01) ==
LOC: ER 21:07
DX: S06.0X0D Concussion without loss of consciousness, subsequent encounter (principal); S01.112D Laceration without foreign body of left eyelid and periocular area, subsequent encounter; S01.21XD Laceration without foreign body of nose, subsequent encounter; X58.XXXD Exposure to other specified factors, subsequent encounter; Z88.5 Allergy status to narcotic agent; Z88.1 Allergy status to other antibiotic agents; Z88.6 Allergy status to analgesic agent
CPT/HCPCS: 99283

== ENCOUNTER 2017-09-23 19:58 | Emergency (ER) | payer OTHER, MEDICAID ==
[2017-09-23] MEDS ORDERED: IBUPROFEN 600 MG TABLET PO ONE (20:20)
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
[2017-09-23] MEDS ORDERED: LIDOCAINE 5% (700 MG) TRANSDERMAL ADH..PATCH TP ONE (21:21)
[2017-09-23] MEDS ORDERED: MORPHINE SULFATE IR 15 MG TABLET PO ONE (21:21)
[2017-09-23] MEDS ORDERED: MORPHINE SULFATE 10 MG/ML INJ IV PRN (21:31)
[2017-09-23] MEDS ORDERED: ACETAMINOPHEN 325 MG TABLET PO ONE (21:31)
[2017-09-23] MEDS ORDERED: HYDROCODONE/ACETAMINOPHEN 5-325 MG 6 TAB/DSPK PO PRN (21:33)
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
--- NOTE | 2017-09-23 22:05 | RADIOLOGY REPORT (SQ) ---
EXAM DESCRIPTION: TIBIA FIBULA RIGHT COMPLETED DATE/TIME: 09/23/2017 9:52 pm REASON FOR STUDY: full eval of tib fi b COMPARISON: None. NUMBER OF VIEWS: Two views. TECHNIQUE: Two radiographic images acquired of the right tibia and fibula to include the knee and an kle in at least one projection. LIMITATIONS: None. FINDINGS: MINERALIZATION: Normal. BONES: The previously described fracture of the proximal tibia is again identified. No other evidenc e for fracture is seen. SOFT TISSUES: No obvious swelling or foreign body. OTHER: No other significant finding. IMPRESSION: The previously described fracture of the proximal tibia is again identified. No other e vidence for fracture or dislocation is seen. TECHNICAL DOCUMENTATION: JOB ID: [id number] [employer]- All Rights Reserved
[2017-09-23 23:01] VITALS: BP 116/83
== END 2017-09-23 23:01 | disposition home or self-care (01) ==
LOC: ER 19:58
PROC: 2W3LX1Z Immobilization of Right Lower Extremity using Splint (ICD-10-PCS; principal; 2017-09-23)
DX: S82.101A Unspecified fracture of upper end of right tibia, initial encounter for closed fracture (principal); M25.551 Pain in right hip; V28.4XXA Motorcycle driver injured in noncollision transport accident in traffic accident, initial encounter; Z88.3 Allergy status to other anti-infective agents
CPT/HCPCS: 99284; 96374; 73552; 73560; 72170; 73590; 29505; J2270

== ENCOUNTER 2017-09-27 11:47 | Emergency (ER) | payer MEDICAID ==
[2017-09-27] MEDS ORDERED: MORPHINE SULFATE 10 MG/ML INJ IV ONE (13:13)
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
[2017-09-27] MEDS: MORPHINE SULFATE 10 MG/ML INJ IV PRN ×3 (14:33→17:33)
--- NOTE | 2017-09-27 17:30 | RADIOLOGY REPORT (SQ) ---
EXAM DESCRIPTION: MRI RT LOWER JOINT WITHOUT COMPLETED DATE/TIME: 09/27/2017 4:57 pm REASON FOR STUDY: right knee injury COMPARISON: Radiograph from 09/23/2017 TECHNIQUE: Rightknee images acquired and stored on PACS. Multiplanar images include fat sensitive s equences as T1, water sensitive sequences as FST2 or STIR, cartilage sensitive sequences as FSPD, and gradient echo sequences. LIMITATIONS: None. FINDINGS: JOINT AND BURSAE: Lipohemarthrosis BONE CORTEX AND MARROW: Again seen is a lateral tibial plateau fracture which extends to the medial c ortex in oblique infection. There is a 17 mm loose bone fragment with approximately 4 mm of depressi on. Bones otherwise intact. ACL: Intact. No degeneration or ganglion cyst. PCL: Intact. MCL: Intact. No periligamentous edema or fluid. LCL: Intact. No periligamentous edema or fluid. MEDIAL MENISCUS: Contusion/ intrasubstance degeneration involving the posterior horn without discrete tear. LATERAL MENISCUS: Horizontal tear involving the anterior horn of the lateral meniscus which surfaces superiorly. MEDIAL COMPARTMENT: Cartilage preserved. LATERAL COMPARTMENT: Cartilage preserved. PATELLA: No chondromalacia. No subchondral cysts. Medial and lateral retinacula intact. EXTENSOR MECHANISM: Intact. Quadriceps and patella tendons normal. SOFT TISSUES: Diffuse subcutaneous edema. OTHER: No other significant finding. IMPRESSION: AGAIN SEEN IS A TIBIAL PLATEAU FRACTURE DETAILED ABOVE. HORIZONTAL TEAR ANTERIOR HORN LATERAL MENISCUS WITH CONTUSION/DEGENERATION POSTERIOR HORN MEDIAL MENI SCUS. NO TENDON, LIGAMENT, OR MUSCLE TEAR. TECHNICAL DOCUMENTATION: JOB ID: [id number] [employer]- All Rights Reserved
[2017-09-27 18:35] VITALS: BP 124/87
== END 2017-09-27 18:35 | disposition home or self-care (01) ==
LOC: ER 11:47
DX: S82.141D Displaced bicondylar fracture of right tibia, subsequent encounter for closed fracture with routine healing (principal); M25.561 Pain in right knee; W05.1XXD Fall from non-moving nonmotorized scooter, subsequent encounter; Z88.5 Allergy status to narcotic agent; Z88.1 Allergy status to other antibiotic agents; Z88.6 Allergy status to analgesic agent
CPT/HCPCS: 96376; 99283; 96374; 73721; J2270

== ENCOUNTER 2017-10-07 09:44 | Inpatient (IN) | payer MEDICAID ==
[2017-10-04 11:49] LABS: ABSOLUTE BASOPHILS # (AUTO) 0.1 10^3/uL (0.0-0.2); ABSOLUTE EOSINOPHILS # (AUTO) 0.2 10^3/uL (0.0-0.6); ABSOLUTE LYMPHOCYTES (AUTO) 3.1 10^3/uL (0.5-4.7); ABSOLUTE MONOCYTES (AUTO) 0.4 10^3/uL (0.1-1.4); EOSINOPHILS % (AUTO) 1.9 % (0-6); HEMATOCRIT 38.7 % (36.0-47.0); HGB HCT DIFFERENCE 0.3; LYMPHOCYTES % (AUTO) 35.1 % (13-45); MEAN CORPUSCULAR HEMOGLOBIN 28.7 pg (27.0-33.4); MEAN CORPUSCULAR HGB CONC 33.5 g/dL (32.0-36.0); MEAN CORPUSCULAR VOLUME 86 fl (80-97); MONOCYTES % (AUTO) 4.5 % (3-13); RED BLOOD COUNT 4.52 10^6/uL (3.72-5.28); SEGMENTED NEUTROPHILS % (AUTO) 57.5 % (42-78); WHITE BLOOD COUNT 8.8 10^3/uL (4.0-10.5)
--- NOTE | 2017-10-04 11:56 | RADIOLOGY REPORT (SQ) ---
EXAM DESCRIPTION: CHEST PA/LATERAL COMPLETED DATE/TIME: 10/04/2017 11:41 am REASON FOR STUDY: PRE-OP COMPARISON: 01/22/2017 EXAM PARAMETERS: NUMBER OF VIEWS: two views TECHNIQUE: Digital Frontal and Lateral radiographic views of the chest acquired. RADIATION DOSE: NA LIMITATIONS: none FINDINGS: LUNGS AND PLEURA: No opacities, masses or pneumothorax. No pleural effusion. MEDIASTINUM AND HILAR STRUCTURES: No masses or contour abnormalities. HEART AND VASCULAR STRUCTURES: Heart normal size. No evidence for failure. BONES: No acute findings. HARDWARE: None in the chest. OTHER: No other significant finding. IMPRESSION: NO SIGNIFICANT RADIOGRAPHIC FINDING IN THE CHEST. TECHNICAL DOCUMENTATION: JOB ID: [id number] [employer]- All Rights Reserved
[2017-10-04 11:57] LABS: APPEARANCE,URINE CLOUDY; BILIRUBIN,URINE NEGATIVE (NEGATIVE); CALCIUM OXALATE CRYSTALS,URINE MODERATE /HPF; GLUCOSE, URINE NEGATIVE (NEGATIVE); KETONES,URINE NEGATIVE (NEGATIVE); LEUKOCYTE ESTERASE,URINE LARGE (NEGATIVE); NITRITE,URINE NEGATIVE (NEGATIVE); PROTEIN,URINE 30 mg/dL (NEGATIVE); URINE SPECIFIC GRAVITY 1.046; UROBILINOGEN,URINE NEGATIVE mg/dL (<2.0)
[2017-10-04 12:14] LABS: ANION GAP 19 (5-19); BLOOD UREA NITROGEN 15 mg/dL (7-20); CALCIUM 9.8 mg/dL (8.4-10.2); CARBON DIOXIDE 20 mmol/L (22-30); CHLORIDE 106 mmol/L (98-107); CREATININE RESULT 0.78 mg/dL (0.52-1.25); GLUCOSE 99 mg/dL (75-110); POTASSIUM 4.3 mmol/L (3.6-5.0); SODIUM 144.7 mmol/L (137-145)
--- NOTE | 2017-10-05 11:41 | EKG REPORT ---
SEVERITY:- NORMAL ECG - SINUS RHYTHM : Confirmed by: Yadira Ross 05-Oct-2017 11:39:49
[~2017-10-07 09:44] MED LIST: CEFAZOLIN 2 GM/D5W RTU 2 GM/50 ML RTUPB IV PRN; LACTATED RINGERS 1000 ML IV PRN; LIDOCAINE 0.5% INJ-PF (5 MG/ML) 50 ML SDV SUBCUT PRN
[2017-10-07] MEDS ORDERED: FENTANYL CITRATE INJ/PF 250 MCG/5 ML AMPULE ONE (11:36)
[2017-10-07] MEDS ORDERED: LIDOCAINE 2% INJ-PF (20 MG/ML) 10 ML AMPUL ONE (11:36)
[2017-10-07] MEDS ORDERED: MIDAZOLAM 2 MG/2 ML INJ ONE (11:36)
[2017-10-07] MEDS ORDERED: ONDANSETRON HCL INJ/PF 4 MG/2 ML SDV ONE (11:37)
[2017-10-07] MEDS ORDERED: PROPOFOL INJ 200 MG/20 ML VIAL IV ONE (11:37)
[2017-10-07] MEDS ORDERED: FENTANYL CITRATE INJ/PF 100 MCG/2 ML AMPUL ONE (11:38)
[2017-10-07] MEDS ORDERED: HYDROMORPHONE HCL INJ/PF 2 MG/ML AMPULE ONE (11:38)
[2017-10-07] MEDS ORDERED: MORPHINE SULFATE 10 MG/ML INJ ONE (11:39)
[2017-10-07] MEDS ORDERED: MEPERIDINE HCL/PF INJ 25 MG/1 ML DISP.SYRIN IV PRN (12:29)
[2017-10-07] MEDS ORDERED: PROMETHAZINE HCL INJ 25 MG/1 ML VIAL IV PRN ×2 (12:29)
[2017-10-07] MEDS ORDERED: ONDANSETRON HCL INJ/PF 4 MG/2 ML SDV IV PRN (12:29)
[2017-10-07] MEDS ORDERED: DIPHENHYDRAMINE HCL 50 MG/ML VIAL IV PRN ×2 (12:29→13:24)
[2017-10-07] MEDS ORDERED: FENTANYL CITRATE INJ/PF 100 MCG/2 ML AMPUL IV PRN ×3 (12:29)
[2017-10-07] MEDS ORDERED: BUPIVACAINE HCL 0.25% /EPINEPHRINE INJ/PF 30 ML SDV ONE (13:03)
--- NOTE | 2017-10-07 13:11 | Operative Report ---
Operative Report DATE OF SURGERY: 10/07/17 PREOPERATIVE DIAGNOSIS: Right tibial plateau fracture OPERATION: Open reduction internal fixation right tibial plateau fracture SURGEON: BURAK RUIZ 1ST RARE/ENDANGERED SPECIES SPECIALIST: SILVIA HANDLEY ANESTHESIA: GA ESTIMATED BLOOD LOSS: 75 PROCEDURE: With the patient supine Afrin table the right lower extreme was prepped and draped in sterile fashion. Limb was elevated for exsanguination tourniquet inflated 350 torr. Hockey type incision was made over the lateral proximal tibia and sharp dissection used to the incision down to the muscular fascia. The muscular fascia was elevated off the proximal anterior lateral aspect of the tibia revealing underlying metaphysis. Soft tissues and elevated proximally to the base of the meniscus. The joint is visualized. The anterior third of the articular surface is crushed and depressed. This is elevated back to an anatomic position and 5 cc of OsteoSet is used for subchondral support. Subsequently 2x4.0 millimeter screws were placed to help support the articular surface. At this point the tourniquet is deflated the wound is irrigated. Hemostasis obtained with electrocautery. The soft tissue layer including the rim of the meniscus is meticulously repaired. The muscle fascia followed by subcu and skin repaired primarily as well. A sterile compressive dressing and knee immobilizer applied and the patient's return to the PACU in satisfactory condition.
[2017-10-07] MEDS ORDERED: OXYCODONE HCL IR 5 MG TABLET PO PRN (13:24)
[2017-10-07] MEDS ORDERED: MORPHINE SULFATE 10 MG/ML INJ IV PRN ×2 (13:24)
[2017-10-07] MEDS ORDERED: ONDANSETRON 4 MG TAB.RAPDIS PO PRN (13:24)
[2017-10-07] MEDS: MORPHINE SULFATE 10 MG/ML INJ ONE ×2 (13:25→13:55)
[2017-10-07] MEDS: MEPERIDINE HCL/PF INJ 25 MG/1 ML DISP.SYRIN ONE ×2 (13:32→13:37)
[2017-10-07] MEDS: FENTANYL CITRATE INJ/PF 100 MCG/2 ML AMPUL ONE ×2 (13:35→13:45)
--- NOTE | 2017-10-07 14:05 | RADIOLOGY REPORT (SQ) ---
EXAM DESCRIPTION: NO CHG FLUORO; KNEE RIGHT 2 VIEWS COMPLETED DATE/TIME: 10/07/2017 1:45 pm; 10/07/2017 1:46 pm REASON FOR STUDY: ORIF RT KNEE( TIBIAL PLATEAU) ASSISTED WITH FLUORO I NOR S82.142A DISPLACED BICON DYLAR FRACTURE OF LEFT TIBIA, INIT S82.101D UNSP FX UPPER END OF R TIBIA, SUBS FOR CLOS FX W RO COMPARISON: None. FLUOROSCOPY TIME: 0.1 minute Total of 2 images saved to PACS. TECHNIQUE: Intra-operative images acquired during surgical procedure to evaluate progress. NUMBER OF IMAGES: Total of 2 LIMITATIONS: None. FINDINGS: 2 orthopedic screws across tibial plateau fracture from a lateral approach. Alignment is anatomic. IMPRESSION: IMAGE(S) OBTAINED DURING PROCEDURE. COMMENT: Quality ID [id number]: Final reports for procedures using fluoroscopy that document radiation exp osure indices, or exposure time and number of fluorographic images (if radiation exposure indices are not available) Please consult full operative report of the attending physician for description of the procedure. TECHNICAL DOCUMENTATION: JOB ID: [id number] [employer]- All Rights Reserved
[2017-10-07] MEDS: MORPHINE SULFATE 10 MG/ML INJ IV PRN ×5 (15:40→23:28)
[2017-10-07] MEDS ORDERED: SUCCINYLCHOLINE CHLORIDE INJ 200 MG/10 ML VIAL ONE (15:41)
[2017-10-07] MEDS ORDERED: (PENDING PHARMACY ID) (Dextroamphetamine/Amphetamine [Adderall 30 Mg Tablet] 30 MG) PO SCH (18:00)
[2017-10-07] MEDS ORDERED: ACETAMINOPHEN 100 ML IV ONE (19:24)
[2017-10-07] MEDS ORDERED: PREGABALIN 75 MG CAPSULE PO SCH (22:00)
[2017-10-07] MEDS ORDERED: ZOLPIDEM TARTRATE 20 MG PO SCH (22:00)
[2017-10-07] MEDS: ZOLPIDEM TARTRATE 5 MG TABLET PO SCH (23:26)
[2017-10-07] MEDS: SERTRALINE HCL 50 MG TABLET PO SCH (23:28)
[2017-10-07] MEDS: IBUPROFEN 800 MG in NORMAL SALINE 250 ML IV SCH (23:28)
[2017-10-07] MEDS: ALPRAZOLAM 0.5 MG TABLET PO SCH (23:28)
[2017-10-08] MEDS: IBUPROFEN 800 MG in NORMAL SALINE 250 ML IV SCH ×3 (06:23→21:17)
[2017-10-08] MEDS: LANSOPRAZOLE 30 MG TAB.RAP.DR PO SCH (06:23)
[2017-10-08] MEDS: ALPRAZOLAM 0.5 MG TABLET PO SCH ×3 (06:23→21:18)
[2017-10-08] MEDS: MORPHINE SULFATE 10 MG/ML INJ IV PRN ×5 (06:41→21:17)
--- NOTE | 2017-10-08 07:01 | PDOC PROGRESS REPORT ---
Subjective Progress Note for:: 10/08/17 Subjective:: Patient complains of unrelenting pain about the right knee Physical Exam Vital Signs: Temp Pulse Resp BP Pulse Ox 37.3 C 72 18 124/76 98 10/07/17 19:00 10/07/17 19:00 10/07/17 19:00 10/07/17 19:00 10/07/17 19:00 Intake & Output 10/06/17 10/07/17 10/08/17 06:59 06:59 06:59 Intake Total 1400 Output Total 105 Balance 1295 General appearance: PRESENT: mild distress Head exam: PRESENT: normocephalic Respiratory exam: PRESENT: unlabored Cardiovascular exam: PRESENT: RRR Pulses: PRESENT: +1 pedal pulses bilateral Vascular exam: PRESENT: normal capillary refill GI/Abdominal exam: PRESENT: soft Rectal exam: PRESENT: deferred Extremities exam: PRESENT: other - Right lower extremity dressing clean dry and intact. Distal neurovascular examination is intact. Neurological exam: PRESENT: alert, awake, oriented to person, oriented to place , oriented to time, oriented to situation. ABSENT: motor sensory deficit Psychiatric exam: PRESENT: appropriate affect, normal mood. ABSENT: homicidal ideation, suicidal ideation Skin exam: PRESENT: dry, intact, warm. ABSENT: cyanosis, rash Results Laboratory Results: 10/04/17 11:05 10/04/17 11:05 Impressions: Chest X-Ray 10/04/17 11:16 IMPRESSION: NO SIGNIFICANT RADIOGRAPHIC FINDING IN THE CHEST. Fluoroscopy 10/07/17 00:00 IMPRESSION: IMAGE(S) OBTAINED DURING PROCEDURE. Knee X-Ray 10/07/17 00:00 IMPRESSION: IMAGE(S) OBTAINED DURING PROCEDURE. Status: Imported from PACS Assessment & Plan - Diagnosis (1) Closed fracture of lateral portion of right tibial plateau Is this a current diagnosis for this admission?: Yes Plan: Patient postop day 1 from an open reduction internal fixation of a right lateral tibial plateau fracture. Postoperative course was notable for unrelenting pain. Pain medication will be increased this morning and physical therapy will be consulted for touchdown weightbearing restriction of the right lower extremity. (2) Urinary tract infection Is this a current diagnosis for this admission?: Yes Plan: Preoperative laboratory evaluation is notable for urine with a high leukocyte esterase. Patient be treated for UTI empirically. - Time Time Spent with patient: 15-24 minutes Anticipated discharge: Home with Homehealth Within: within 24 hours
[2017-10-08] MEDS: MORPHINE SULFATE 10 MG/ML INJ IM PRN ×2 (08:24→11:59)
[2017-10-08] MEDS ORDERED: AMOXICILLIN TR/POT CLAVULANATE 500-125 MG TAB PO ONE (09:00)
[2017-10-08] MEDS: OXYCODONE HCL IR 5 MG TABLET PO PRN ×2 (09:37→17:16)
[2017-10-08] MEDS: SERTRALINE HCL 50 MG TABLET PO SCH ×2 (09:37→21:17)
[2017-10-08] MEDS: AMOXICILLIN TR/POT CLAVULANATE 500-125 MG TAB PO SCH ×2 (13:31→21:18)
[2017-10-08] MEDS: ZOLPIDEM TARTRATE 5 MG TABLET PO SCH (21:18)
[2017-10-09] MEDS: OXYCODONE HCL IR 5 MG TABLET PO PRN ×3 (04:09→17:14)
[2017-10-09] MEDS: MORPHINE SULFATE 10 MG/ML INJ IV PRN ×4 (04:09→15:03)
[2017-10-09] MEDS: LANSOPRAZOLE 30 MG TAB.RAP.DR PO SCH (06:30)
[2017-10-09] MEDS: ALPRAZOLAM 0.5 MG TABLET PO SCH ×3 (06:30→21:15)
[2017-10-09] MEDS: IBUPROFEN 800 MG in NORMAL SALINE 250 ML IV SCH ×2 (06:30→16:31)
[2017-10-09] MEDS: AMOXICILLIN TR/POT CLAVULANATE 500-125 MG TAB PO SCH ×3 (06:30→21:14)
--- NOTE | 2017-10-09 07:23 | PDOC PROGRESS REPORT ---
Subjective Progress Note for:: 10/09/17 Subjective:: Patient with tingling complaints of unrelenting pain. Interfering with her ability to participate in physical therapy. Physical Exam Vital Signs: Temp Pulse Resp BP Pulse Ox 36.9 C 76 17 101/64 97 10/09/17 00:39 10/09/17 00:39 10/09/17 00:39 10/09/17 00:39 10/09/17 00:39 Intake & Output 10/08/17 10/09/17 10/10/17 06:59 06:59 06:59 Intake Total 2320 2410 Output Total 105 Balance 2215 2410 General appearance: PRESENT: mild distress, obese Head exam: PRESENT: normocephalic Eye exam: PRESENT: EOMI Respiratory exam: PRESENT: unlabored Cardiovascular exam: PRESENT: RRR Pulses: PRESENT: +1 pedal pulses bilateral Vascular exam: PRESENT: normal capillary refill GI/Abdominal exam: PRESENT: soft Rectal exam: PRESENT: deferred Extremities exam: PRESENT: other - Right lower extremity dressing clean dry and intact, knee immobilizer and less than ideal position. Neurological exam: PRESENT: alert, awake, oriented to person, oriented to place , oriented to time, oriented to situation. ABSENT: motor sensory deficit Psychiatric exam: PRESENT: appropriate affect, normal mood. ABSENT: homicidal ideation, suicidal ideation Skin exam: PRESENT: dry, intact, warm. ABSENT: cyanosis, rash Results Laboratory Results: 10/04/17 11:05 10/04/17 11:05 Impressions: Chest X-Ray 10/04/17 11:16 IMPRESSION: NO SIGNIFICANT RADIOGRAPHIC FINDING IN THE CHEST. Fluoroscopy 10/07/17 00:00 IMPRESSION: IMAGE(S) OBTAINED DURING PROCEDURE. Knee X-Ray 10/07/17 00:00 IMPRESSION: IMAGE(S) OBTAINED DURING PROCEDURE. Status: Imported from PACS Assessment & Plan - Diagnosis (1) Closed fracture of lateral portion of right tibial plateau Is this a current diagnosis for this admission?: Yes Plan: Patient postop day 2 from ORIF of right lateral tibial plateau fracture with limited ability to ambulate with physical therapy. Patient lives at home with a 10-year-old. There is no adult help at home available. In light of the patient's functional level and her social situation she may be best served with a custodial facility placement. Social work is requested to explore this. (2) Urinary tract infection Is this a current diagnosis for this admission?: Yes - Time Time Spent with patient: 15-24 minutes Anticipated discharge: SNF Within: within 24 hours
[2017-10-09] MEDS: SERTRALINE HCL 50 MG TABLET PO SCH ×2 (09:04→21:15)
[2017-10-09] MEDS: ZOLPIDEM TARTRATE 5 MG TABLET PO SCH (21:14)
[2017-10-10] MEDS: MORPHINE SULFATE 10 MG/ML INJ IV PRN ×4 (00:18→19:23)
[2017-10-10] MEDS: AMOXICILLIN TR/POT CLAVULANATE 500-125 MG TAB PO SCH ×3 (06:02→21:36)
[2017-10-10] MEDS: OXYCODONE HCL IR 5 MG TABLET PO PRN ×2 (06:02→21:37)
[2017-10-10] MEDS: LANSOPRAZOLE 30 MG TAB.RAP.DR PO SCH (06:02)
[2017-10-10] MEDS: ALPRAZOLAM 0.5 MG TABLET PO SCH ×3 (06:02→21:36)
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
[2017-10-10] MEDS ORDERED: ONDANSETRON 4 MG TAB.RAPDIS PO PRN (08:30)
[2017-10-10] MEDS: MORPHINE SULFATE 10 MG/ML INJ IM PRN ×2 (08:31→14:30)
[2017-10-10] MEDS: SERTRALINE HCL 50 MG TABLET PO SCH ×2 (10:07→21:37)
[2017-10-10] MEDS: ZOLPIDEM TARTRATE 5 MG TABLET PO SCH (21:36)
--- NOTE | 2017-10-11 05:36 | PDOC PROGRESS REPORT ---
Subjective Progress Note for:: 10/11/17 Subjective:: Patient continues to complain of unrelenting pain which precludes meaningful physical therapy Physical Exam Vital Signs: Temp Pulse Resp BP Pulse Ox 37.3 C 90 17 106/65 97 10/10/17 23:12 10/10/17 23:12 10/10/17 23:12 10/10/17 23:12 10/10/17 23:12 Intake & Output 10/09/17 10/10/17 10/11/17 06:59 06:59 06:59 Intake Total 2410 3530 20 Output Total 700 Balance 2410 2830 20 General appearance: PRESENT: no acute distress Head exam: PRESENT: normocephalic Respiratory exam: PRESENT: unlabored Cardiovascular exam: PRESENT: RRR Extremities exam: PRESENT: other - Right knee dressing is clean dry and intact. There is a low-grade effusion. There is global tenderness to palpation. Neurological exam: PRESENT: alert, awake, oriented to person, oriented to place , oriented to time, oriented to situation. ABSENT: motor sensory deficit Psychiatric exam: PRESENT: appropriate affect, normal mood. ABSENT: homicidal ideation, suicidal ideation Skin exam: PRESENT: dry, intact, warm. ABSENT: cyanosis, rash Results Laboratory Results: 10/04/17 11:05 10/04/17 11:05 Impressions: Chest X-Ray 10/04/17 11:16 IMPRESSION: NO SIGNIFICANT RADIOGRAPHIC FINDING IN THE CHEST. Fluoroscopy 10/07/17 00:00 IMPRESSION: IMAGE(S) OBTAINED DURING PROCEDURE. Knee X-Ray 10/07/17 00:00 IMPRESSION: IMAGE(S) OBTAINED DURING PROCEDURE. Status: Imported from PACS Assessment & Plan - Diagnosis (1) Closed fracture of lateral portion of right tibial plateau Is this a current diagnosis for this admission?: Yes Plan: Patient awaiting long-term facility placement (2) Urinary tract infection Is this a current diagnosis for this admission?: Yes - Time Time Spent with patient: 15-24 minutes Anticipated discharge: SNF Within: when bed available
[2017-10-11] MEDS: LANSOPRAZOLE 30 MG TAB.RAP.DR PO SCH (05:40)
[2017-10-11] MEDS: ALPRAZOLAM 0.5 MG TABLET PO SCH ×3 (05:40→21:53)
[2017-10-11] MEDS: AMOXICILLIN TR/POT CLAVULANATE 500-125 MG TAB PO SCH ×3 (05:41→21:53)
[2017-10-11] MEDS: OXYCODONE HCL IR 5 MG TABLET PO PRN (05:41)
[2017-10-11] MEDS: MORPHINE SULFATE 10 MG/ML INJ IV PRN ×4 (05:41→21:53)
[2017-10-11] MEDS: SERTRALINE HCL 50 MG TABLET PO SCH ×2 (10:21→21:53)
[2017-10-11] MEDS: MORPHINE SULFATE 10 MG/ML INJ IM PRN ×3 (10:21→18:55)
[2017-10-11] MEDS: ZOLPIDEM TARTRATE 5 MG TABLET PO SCH (21:53)
[2017-10-12] MEDS: ALPRAZOLAM 0.5 MG TABLET PO SCH ×3 (06:21→21:57)
[2017-10-12] MEDS: AMOXICILLIN TR/POT CLAVULANATE 500-125 MG TAB PO SCH ×3 (06:21→21:58)
[2017-10-12] MEDS: MORPHINE SULFATE 10 MG/ML INJ IM PRN (06:21)
[2017-10-12] MEDS: LANSOPRAZOLE 30 MG TAB.RAP.DR PO SCH (06:21)
[2017-10-12] MEDS: MORPHINE SULFATE 10 MG/ML INJ IV PRN ×4 (07:53→19:48)
[2017-10-12] MEDS: OXYCODONE HCL IR 5 MG TABLET PO PRN ×4 (08:29→21:58)
[2017-10-12] MEDS: SERTRALINE HCL 50 MG TABLET PO SCH ×2 (09:05→21:58)
--- NOTE | 2017-10-12 09:49 | PDOC PROGRESS REPORT ---
Subjective Progress Note for:: 10/12/17 Subjective:: Patient continues to complain of unrelenting pain. Physical Exam Vital Signs: Temp Pulse Resp BP Pulse Ox 36.9 C 73 16 107/65 96 10/12/17 07:42 10/12/17 07:42 10/12/17 07:42 10/12/17 07:42 10/12/17 07:42 Intake & Output 10/11/17 10/12/17 10/13/17 06:59 06:59 06:59 Intake Total 530 607 Output Total 600 Balance 530 7 Weight 105.9 kg 97.52 kg Physical Exam: Patient ambulating to the door of the room with physical therapy. This is a goal set by physical therapy and there is great duress and emotional overlay and the patient accomplishing this goal Respiratory exam: PRESENT: unlabored Cardiovascular exam: PRESENT: RRR Pulses: PRESENT: +1 pedal pulses bilateral Vascular exam: PRESENT: normal capillary refill Neurological exam: PRESENT: alert, awake, oriented to person, oriented to place , oriented to time, oriented to situation, CN II-XII grossly intact. ABSENT: motor sensory deficit Skin exam: PRESENT: dry, intact, warm. ABSENT: cyanosis, rash Results Laboratory Results: 10/04/17 11:05 10/04/17 11:05 Impressions: Chest X-Ray 10/04/17 11:16 IMPRESSION: NO SIGNIFICANT RADIOGRAPHIC FINDING IN THE CHEST. Fluoroscopy 10/07/17 00:00 IMPRESSION: IMAGE(S) OBTAINED DURING PROCEDURE. Knee X-Ray 10/07/17 00:00 IMPRESSION: IMAGE(S) OBTAINED DURING PROCEDURE. Status: Imported from PACS Assessment & Plan - Diagnosis (1) Closed fracture of lateral portion of right tibial plateau Is this a current diagnosis for this admission?: Yes Plan: Pain medication rearranged today. Patient awaiting snf facility placement. (2) Urinary tract infection Is this a current diagnosis for this admission?: Yes - Time Time Spent with patient: 15-24 minutes Anticipated discharge: SNF Within: when bed available
[2017-10-12] MEDS ORDERED: OXYCODONE HCL SR 10 MG TABLET PO ONE (11:00)
[2017-10-12] MEDS: OXYCODONE HCL SR 10 MG TABLET PO SCH (21:57)
[2017-10-12] MEDS: ZOLPIDEM TARTRATE 5 MG TABLET PO SCH (21:58)
[2017-10-13] MEDS: AMOXICILLIN TR/POT CLAVULANATE 500-125 MG TAB PO SCH ×3 (05:32→21:07)
[2017-10-13] MEDS: LANSOPRAZOLE 30 MG TAB.RAP.DR PO SCH (05:32)
[2017-10-13] MEDS: MORPHINE SULFATE 10 MG/ML INJ IV PRN ×5 (05:32→19:38)
[2017-10-13] MEDS: ALPRAZOLAM 0.5 MG TABLET PO SCH ×3 (05:32→21:07)
[2017-10-13] MEDS: OXYCODONE HCL IR 5 MG TABLET PO PRN ×4 (08:14→22:27)
[2017-10-13] MEDS: SERTRALINE HCL 50 MG TABLET PO SCH ×2 (09:35→21:07)
[2017-10-13] MEDS: OXYCODONE HCL SR 10 MG TABLET PO SCH ×2 (09:35→21:08)
[2017-10-13] MEDS ORDERED: NYSTATIN TOPICAL POWDER 15 GM TP PRN (11:55)
[2017-10-13] MEDS: ZOLPIDEM TARTRATE 5 MG TABLET PO SCH (21:07)
[2017-10-14] MEDS: AMOXICILLIN TR/POT CLAVULANATE 500-125 MG TAB PO SCH ×3 (05:39→22:14)
[2017-10-14] MEDS: LANSOPRAZOLE 30 MG TAB.RAP.DR PO SCH (05:39)
[2017-10-14] MEDS: ALPRAZOLAM 0.5 MG TABLET PO SCH ×2 (05:39→13:16)
[2017-10-14] MEDS: MORPHINE SULFATE 10 MG/ML INJ IV PRN ×4 (05:40→11:16)
[2017-10-14] MEDS: OXYCODONE HCL IR 5 MG TABLET PO PRN ×3 (06:33→20:14)
--- NOTE | 2017-10-14 07:18 | PDOC PROGRESS REPORT ---
Subjective Progress Note for:: 10/14/17 Subjective:: Patient lying recumbent in hospital bed appearing very comfortable this morning. Patient notes that her pain is better controlled this morning. Physical Exam Vital Signs: Temp Pulse Resp BP Pulse Ox 37.0 C 69 16 104/61 96 10/14/17 00:00 10/14/17 00:00 10/14/17 00:00 10/14/17 00:00 10/14/17 00:00 Intake & Output 10/13/17 10/14/17 10/15/17 06:59 06:59 06:59 Intake Total 1423 2588 Balance 1423 2588 Weight 103.6 kg 102.5 kg General appearance: PRESENT: no acute distress, well-developed, well-nourished Head exam: PRESENT: atraumatic, normocephalic Respiratory exam: PRESENT: unlabored Pulses: PRESENT: normal dorsalis pedis pul, +2 pedal pulses bilateral Vascular exam: PRESENT: normal capillary refill Additional comments: Patient's right lower extremity is in full extension with patient lying recumbent in hospital bed. Her honeycomb OpSite dressing is in place and it is clean dry and intact. She is tender to palpation. Her sensory motor functions are intact there is minimal pedal edema she has brisk capillary refill to toes on bilateral feet and her distal neurovascular exam is intact. Musculoskeletal exam: PRESENT: ambulatory Additional comments: Patient continues to make slow progress with physical therapy ambulating up to 50 feet. Patient will continue to work with physical therapy to improve length of ambulation and strength range of motion of the right lower extremity. Neurological exam: PRESENT: alert, awake, oriented to person, oriented to place , oriented to time, oriented to situation, CN II-XII grossly intact. ABSENT: motor sensory deficit Psychiatric exam: PRESENT: appropriate affect, normal mood. ABSENT: homicidal ideation, suicidal ideation Skin exam: PRESENT: dry, intact, warm. ABSENT: cyanosis, rash Results Laboratory Results: 10/04/17 11:05 10/04/17 11:05 Impressions: Chest X-Ray 10/04/17 11:16 IMPRESSION: NO SIGNIFICANT RADIOGRAPHIC FINDING IN THE CHEST. Fluoroscopy 10/07/17 00:00 IMPRESSION: IMAGE(S) OBTAINED DURING PROCEDURE. Knee X-Ray 10/07/17 00:00 IMPRESSION: IMAGE(S) OBTAINED DURING PROCEDURE. Assessment & Plan - Diagnosis (1) Closed fracture of lateral portion of right tibial plateau Qualifiers: Encounter type: subsequent encounter Fracture healing: with routine healing Qualified Code(s): S82.121D - Displaced fracture of lateral condyle of right tibia, subsequent encounter for closed fracture with routine healing Is this a current diagnosis for this admission?: Yes - Plan Summary Plan Summary: 36-year-old white female status post fracture of right tibial plateau and open reduction internal fixation of tibial plateau fracture. Patient continues to make slow progress with physical therapy only ambulating up to 50 feet. Patient will continue to work with physical therapy to improve length of ambulation and improve strength range of motion of right lower extremity. Her pain is better controlled at this point. Discussed the patient will be discharged to a halfway facility however now patient notes that if she can stay in the hospital a few more days she would feel comfortable being discharged to home. These options will be discussed with social work and a final plan for discharge will be determined.
[2017-10-14] MEDS: SERTRALINE HCL 50 MG TABLET PO SCH ×2 (09:06→22:14)
[2017-10-14] MEDS: OXYCODONE HCL SR 10 MG TABLET PO SCH ×2 (11:16→22:14)
--- NOTE | 2017-10-14 17:20 | RADIOLOGY REPORT (SQ) ---
EXAM DESCRIPTION: VENOUS UNILATERAL LOWER COMPLETED DATE/TIME: 10/14/2017 3:35 pm REASON FOR STUDY: swelling tenderness RLE S82.142A DISPLACED BICONDYLAR FRACTURE OF LEFT TIBIA, INI T S82.101D UNSP FX UPPER END OF R TIBIA, SUBS FOR CLOS FX W RO COMPARISON: None. TECHNIQUE: Dynamic and static greenwood scale and color images acquired of the right leg venous system. S elected spectral images acquired with additional compression and augmentation maneuvers. The contrala teral common femoral vein and saphenofemoral junction were also imaged. Images stored on PACS. LIMITATIONS: None. FINDINGS: COMMON FEMORAL: Normal phasicity, compression and augmentation. No visualized echogenic ma terial on greenwood scale. No defects on color images. FEMORAL: Normal compression and augmentation. No visualized echogenic material on greenwood scale. No defe cts on color images. POPLITEAL: Normal compression, augmentation. No visualized echogenic material on greenwood scale. No defec ts on color images. CALF VESSELS: Normal compression, augmentation. No visualized echogenic material on greenwood scale. No de fects on color images. GSV and SSV: Normal compression, augmentation. No visualized echogenic material on greenwood scale. No def ects on color images. ANY DEEP VENOUS INSUFFICIENCY: Not evaluated. ANY EVIDENCE OF POPLITEAL CYST: No. OTHER: No other significant finding. CONTRALATERAL COMMON FEMORAL VEIN AND SAPHENOFEMORAL JUNCTION: Normal phasicity, compression and augmentation. No visualized echogenic material on greenwood scale. No de fects on color images. IMPRESSION: NO EVIDENCE DVT OR SVT IN THE RIGHT LEG. TECHNICAL DOCUMENTATION: JOB ID: [id number] [employer]- All Rights Reserved
[2017-10-14] MEDS: ZOLPIDEM TARTRATE 5 MG TABLET PO SCH (22:14)
[2017-10-14] MEDS ORDERED: ALPRAZOLAM 0.5 MG TABLET PO PRN (22:21)
[2017-10-14] MEDS ORDERED: ALPRAZOLAM 0.5 MG TABLET PO ONE (22:30)
[2017-10-15] MEDS: OXYCODONE HCL IR 5 MG TABLET PO PRN ×5 (03:59→23:43)
[2017-10-15] MEDS: ALPRAZOLAM 0.5 MG TABLET PO SCH ×3 (05:59→21:35)
[2017-10-15] MEDS: LANSOPRAZOLE 30 MG TAB.RAP.DR PO SCH (05:59)
[2017-10-15] MEDS: AMOXICILLIN TR/POT CLAVULANATE 500-125 MG TAB PO SCH (05:59)
--- NOTE | 2017-10-15 06:58 | PDOC PROGRESS REPORT ---
Subjective Progress Note for:: 10/15/17 Subjective:: Patient with continued complaints of pain greater than would be expected from the injury and the surgery. New onset pain in the right calf. Physical Exam Vital Signs: Temp Pulse Resp BP Pulse Ox 36.9 C 68 18 100/55 L 97 10/15/17 00:00 10/15/17 00:00 10/15/17 00:00 10/15/17 00:00 10/15/17 00:00 Intake & Output 10/13/17 10/14/17 10/15/17 06:59 06:59 06:59 Intake Total 1423 2588 983 Balance 1423 2588 983 Weight 103.6 kg 102.5 kg 103.8 kg General appearance: PRESENT: mild distress, obese Head exam: PRESENT: normocephalic Respiratory exam: PRESENT: unlabored Cardiovascular exam: PRESENT: RRR Pulses: PRESENT: +1 pedal pulses bilateral Vascular exam: PRESENT: normal capillary refill GI/Abdominal exam: PRESENT: soft Rectal exam: PRESENT: deferred Extremities exam: PRESENT: other - Right lower extremity dressing clean and dry. Any passive range of motion elicits significant pain response. Right calf is soft. Passive range of motion of the ankle and foot cause some discomfort but not out of proportion. Distal neurovascular examination is intact. Neurological exam: PRESENT: alert, awake, oriented to person, oriented to place , oriented to time, oriented to situation. ABSENT: motor sensory deficit Psychiatric exam: PRESENT: appropriate affect, normal mood. ABSENT: homicidal ideation, suicidal ideation Skin exam: PRESENT: dry, intact, warm. ABSENT: cyanosis, rash Results Laboratory Results: 10/04/17 11:05 10/04/17 11:05 Impressions: Chest X-Ray 10/04/17 11:16 IMPRESSION: NO SIGNIFICANT RADIOGRAPHIC FINDING IN THE CHEST. Fluoroscopy 10/07/17 00:00 IMPRESSION: IMAGE(S) OBTAINED DURING PROCEDURE. Knee X-Ray 10/07/17 00:00 IMPRESSION: IMAGE(S) OBTAINED DURING PROCEDURE. Venous Doppler Study 10/14/17 00:00 IMPRESSION: NO EVIDENCE DVT OR SVT IN THE RIGHT LEG. Status: Imported from PACS Assessment & Plan - Diagnosis (1) Closed fracture of lateral portion of right tibial plateau Qualifiers: Encounter type: subsequent encounter Fracture healing: with routine healing Qualified Code(s): S82.121D - Displaced fracture of lateral condyle of right tibia, subsequent encounter for closed fracture with routine healing Is this a current diagnosis for this admission?: Yes Plan: Patient with new onset complaints of right calf pain. Physical examination was low suspicion for an underlying deep venous thrombosis. However a Doppler was obtained which was negative for DVT. Patient continues to make relatively minor progress with physical therapy with complaints of pain which precludes effective ambulation. Patient continues to use parenteral narcotics for pain control. (2) Urinary tract infection Is this a current diagnosis for this admission?: Yes - Plan Summary Plan Summary: Patient to be discharged to a [facility] facility when bed available
[2017-10-15] MEDS: OXYCODONE HCL SR 10 MG TABLET PO SCH ×2 (09:36→21:35)
[2017-10-15] MEDS: SERTRALINE HCL 50 MG TABLET PO SCH ×2 (09:37→21:35)
[2017-10-15] MEDS: ZOLPIDEM TARTRATE 5 MG TABLET PO SCH (21:34)
[2017-10-16] MEDS: OXYCODONE HCL IR 5 MG TABLET PO PRN ×3 (05:13→15:02)
[2017-10-16] MEDS: LANSOPRAZOLE 30 MG TAB.RAP.DR PO SCH (05:13)
[2017-10-16] MEDS: ALPRAZOLAM 0.5 MG TABLET PO SCH ×3 (05:13→21:24)
--- NOTE | 2017-10-16 07:15 | PDOC PROGRESS REPORT ---
Subjective Progress Note for:: 10/16/17 Subjective:: Patient ambulated 20 feet yesterday. Progress is limited by ongoing complaints of pain. Pain out of proportion to what would be expected Physical Exam Vital Signs: Temp Pulse Resp BP Pulse Ox 37.1 C 63 16 101/60 97 10/15/17 23:10 10/15/17 23:10 10/15/17 23:10 10/15/17 23:10 10/15/17 23:10 Intake & Output 10/15/17 10/16/17 10/17/17 06:59 06:59 06:59 Intake Total 983 1080 Balance 983 1080 Weight 103.8 kg 104 kg General appearance: PRESENT: no acute distress Head exam: PRESENT: normocephalic Respiratory exam: PRESENT: unlabored Cardiovascular exam: PRESENT: RRR Pulses: PRESENT: +1 pedal pulses bilateral Vascular exam: PRESENT: normal capillary refill GI/Abdominal exam: PRESENT: soft Rectal exam: PRESENT: deferred Extremities exam: PRESENT: other - Right lower extremity dressing is clean dry and intact. Calf is soft and nontender. Distal neurovascular examination is intact. Neurological exam: PRESENT: alert, awake, oriented to person, oriented to place , oriented to time, oriented to situation. ABSENT: motor sensory deficit Psychiatric exam: PRESENT: appropriate affect, normal mood. ABSENT: homicidal ideation, suicidal ideation Skin exam: PRESENT: dry, intact, warm. ABSENT: cyanosis, rash Results Laboratory Results: 10/04/17 11:05 10/04/17 11:05 Impressions: Chest X-Ray 10/04/17 11:16 IMPRESSION: NO SIGNIFICANT RADIOGRAPHIC FINDING IN THE CHEST. Fluoroscopy 10/07/17 00:00 IMPRESSION: IMAGE(S) OBTAINED DURING PROCEDURE. Knee X-Ray 10/07/17 00:00 IMPRESSION: IMAGE(S) OBTAINED DURING PROCEDURE. Venous Doppler Study 10/14/17 00:00 IMPRESSION: NO EVIDENCE DVT OR SVT IN THE RIGHT LEG. Status: Imported from PACS Assessment & Plan - Diagnosis (1) Closed fracture of lateral portion of right tibial plateau Qualifiers: Encounter type: subsequent encounter Fracture healing: with routine healing Qualified Code(s): S82.121D - Displaced fracture of lateral condyle of right tibia, subsequent encounter for closed fracture with routine healing Is this a current diagnosis for this admission?: Yes Plan: Patient continues to have limited progress with physical therapy and ongoing complaints of pain which seem to be out of proportion to the injury. She is awaiting correction facility placement. (2) Urinary tract infection Is this a current diagnosis for this admission?: Yes - Time Time Spent with patient: 15-24 minutes Anticipated discharge: SNF Within: when bed available
[2017-10-16] MEDS: SERTRALINE HCL 50 MG TABLET PO SCH ×2 (10:48→21:24)
[2017-10-16] MEDS: OXYCODONE HCL SR 10 MG TABLET PO SCH ×2 (10:48→21:24)
[2017-10-16] MEDS: ZOLPIDEM TARTRATE 5 MG TABLET PO SCH (21:24)
[2017-10-17] MEDS: OXYCODONE HCL IR 5 MG TABLET PO PRN ×2 (00:39→05:21)
[2017-10-17] MEDS: ALPRAZOLAM 0.5 MG TABLET PO SCH ×2 (05:21→14:35)
[2017-10-17] MEDS: LANSOPRAZOLE 30 MG TAB.RAP.DR PO SCH (05:21)
--- NOTE | 2017-10-17 06:39 | PDOC PROGRESS REPORT ---
Subjective Progress Note for:: 10/17/17 Subjective:: No new complaints Physical Exam Vital Signs: Temp Pulse Resp BP Pulse Ox 36.9 C 47 L 14 110/56 L 99 10/17/17 00:28 10/17/17 00:28 10/17/17 00:28 10/17/17 00:28 10/17/17 00:28 Intake & Output 10/15/17 10/16/17 10/17/17 06:59 06:59 06:59 Intake Total 983 1080 1840 Output Total 175 Balance 983 1080 1665 Weight 103.8 kg 104 kg 103.9 kg General appearance: PRESENT: no acute distress Extremities exam: PRESENT: other - Right lower extremity dressing clean dry and intact. Calf soft. Distal neurovascular examination is intact. Neurological exam: PRESENT: alert, awake, oriented to person, oriented to place , oriented to time, oriented to situation. ABSENT: motor sensory deficit Psychiatric exam: PRESENT: appropriate affect, normal mood. ABSENT: homicidal ideation, suicidal ideation Skin exam: PRESENT: dry, intact, warm. ABSENT: cyanosis, rash Results Laboratory Results: 10/04/17 11:05 10/04/17 11:05 Impressions: Chest X-Ray 10/04/17 11:16 IMPRESSION: NO SIGNIFICANT RADIOGRAPHIC FINDING IN THE CHEST. Fluoroscopy 10/07/17 00:00 IMPRESSION: IMAGE(S) OBTAINED DURING PROCEDURE. Knee X-Ray 10/07/17 00:00 IMPRESSION: IMAGE(S) OBTAINED DURING PROCEDURE. Venous Doppler Study 10/14/17 00:00 IMPRESSION: NO EVIDENCE DVT OR SVT IN THE RIGHT LEG. Status: Imported from PACS Assessment & Plan - Diagnosis (1) Closed fracture of lateral portion of right tibial plateau Qualifiers: Encounter type: subsequent encounter Fracture healing: with routine healing Qualified Code(s): S82.121D - Displaced fracture of lateral condyle of right tibia, subsequent encounter for closed fracture with routine healing Is this a current diagnosis for this admission?: Yes Plan: 36-year-old white female status post open reduction internal fixation of her right lateral tibial plateau fracture with limited progress with physical therapy. She did ambulate 40 feet yesterday. Pain complaints continue to be out of proportion of what that is expected. Awaiting assisted facility placement. This is been problematic. (2) Urinary tract infection Is this a current diagnosis for this admission?: Yes - Time Time Spent with patient: 15-24 minutes Anticipated discharge: SNF Within: when bed available
[2017-10-17] MEDS: OXYCODONE HCL SR 10 MG TABLET PO SCH (11:26)
[2017-10-17] MEDS: SERTRALINE HCL 50 MG TABLET PO SCH (11:35)
[2017-10-17 16:18] VITALS: BP 103/54
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
== END 2017-10-17 16:45 | disposition home health service (06) | DRG 493 ==
LOC: INOR 10:09 → EDSTATUS 12:30 → 4N 14:55
PROVIDERS: ADMIT Orthopaedic Surgery; ATTEND Orthopaedic Surgery
PROC: 0QSG04Z Reposition Right Tibia with Internal Fixation Device, Open Approach (ICD-10-PCS; principal; 2017-10-07 12:30)
DX: S82.101D Unspecified fracture of upper end of right tibia, subsequent encounter for closed fracture with routine healing (principal); N39.0 Urinary tract infection, site not specified; G43.909 Migraine, unspecified, not intractable, without status migrainosus; F41.9 Anxiety disorder, unspecified; V29.9XXD Motorcycle rider (driver) (passenger) injured in unspecified traffic accident, subsequent encounter; Z90.710 Acquired absence of both cervix and uterus; Z82.49 Family history of ischemic heart disease and other diseases of the circulatory system
CPT/HCPCS: 01392; 36415; 71020; 80048; 81001; 85025; 93005; 93010; 93971; C1769; J0131; J0330; J0690; J1170; J1741; J2175; J2250; J2270; J2405; J2704; J3010; J3490; J7050; J7120; L1830

== ENCOUNTER 2017-12-03 21:43 | Emergency (ER) | payer MEDICAID ==
[2017-12-03] MEDS ORDERED: NORMAL SALINE 1000 ML 1,000 ML IV ONE (22:54)
--- NOTE | 2017-12-03 22:54 | ER Document Report ---
ED Medical Screen (RME) - General Chief Complaint: Headache Stated Complaint: HEADACHE AND BACK PAIN Time Seen by Provider: 12/03/17 22:41 Notes: 37-year-old female, comes by EMS, has multiple complaints. Chief complaint is that she feels weak and faint and she has lost her balance and fallen twice, landing on her lower back. She denies head injury. She denies chest pain, fever, vomiting, shortness of breath. She has had recent surgery on her right tibia but she states this is doing well. TRAVEL OUTSIDE OF THE [place] IN LAST 30 DAYS: No - Related Data Allergies/Adverse Reactions: hydromorphone HCl [From Dilaudid] Allergy (Intermediate, Verified 10/04/17 09:58 ) thrush sulfamethoxazole [From Septra] Allergy (Intermediate, Verified 10/04/17 09:58) thrush trimethoprim [From Septra] Allergy (Intermediate, Verified 10/04/17 09:58) thrush duloxetine HCl [From Cymbalta] Allergy (Verified 10/04/17 09:58) Disorientation milnacipran HCl [From Savella] Allergy (Verified 10/04/17 09:58) Disorientation pregabalin [From Lyrica] Allergy (Verified 10/08/17 03:36) Past Medical History - Past Medical History Cardiac Medical History: Denies: Hx Pulmonary Embolism Pulmonary Medical History: Reports: Hx Asthma - H/O YRS AGO, NOT CURRENTLY ON MEDS Denies: Hx Bronchitis, Hx COPD, Hx Pneumonia, Hx Respiratory Failure, Hx Sleep Apnea, Hx Tuberculosis Neurological Medical History: Reports: Hx Migraine, Hx Seizures - H/O BABY- FEBRILE SEIZURE. Denies: Hx Cerebrovascular Accident Renal/ Medical History: Reports: Hx Kidney Stones, Hx Ovarian Cysts, Hx Pelvic Inflammatory Disease. Denies: Hx End Stage Renal Disease, Hx Peritoneal Dialysis Malignancy Medical History: Denies: Hx Breast Cancer, Hx Cervical Cancer, Hx Lung Cancer, Hx Ovarian Cancer GI Medical History: Reports: Hx Crohn's Disease, Hx Diverticulitis, Hx Gastroesophageal Reflux Disease, Hx Irritable Bowel, Hx Colonoscopy, Hx Endoscopy. Denies: Hx Hiatal Hernia, Hx Liver Failure, Hx Pancreatitis, Hx Ulcer Musculoskeltal Medical History: Denies Hx Arthritis, Reports Hx Fibromyalgia, Denies Hx Multiple Sclerosis, Denies Hx Muscular Dystrophy, Reports Hx Musculoskeletal Deformity, Reports Hx Musculoskeletal Trauma Psychiatric Medical History: Reports: Hx Attention Deficit Hyperactivity Disorder, Hx Depression, Hx Obsessive Compulsive Disorder Denies: Hx Bipolar Disorder, Hx Dementia, Hx Post Traumatic Stress Disorder, Hx Schizophrenia Traumatic Medical History: Reports: Hx Fractures - TIB/FIB Infectious Medical History: Past Surgical History: Reports: Hx Genitourinary Surgery - Bladder Tack, Hx Hysterectomy, Hx Tonsillectomy - ADENOIDS. Denies: Hx Appendectomy, Hx Bowel Surgery, Hx Section, Hx Cholecystectomy, Hx Colostomy, Hx Coronary Artery Bypass Graft, Hx Gastric Bypass Surgery, Hx Herniorrhaphy, Hx Mastectomy , Hx Pacemaker, Hx Tubal Ligation - Immunizations Hx Diphtheria, Pertussis, Tetanus Vaccination: Yes History of Influenza Vaccine for 09/2017 - 01/2018 Season: Refused Physical Exam - Vital signs Vitals: Temp Pulse Resp BP Pulse Ox 99 F 119 H 18 119/89 H 97 12/03/17 21:44 12/03/17 21:44 12/03/17 21:44 12/03/17 21:44 12/03/17 21:44 - Abdominal Inspection: Normal Tenderness: Nontender - Back Back: Other - Bruising noted over the lumbar areas bilaterally, midline tenderness and generalized tenderness of the lower back. Otherwise unremarkable lower back and back exam per Course - Re-evaluation Re-evalutation: Complaints of weakness and lightheadedness. Checking for anemia, electrolyte abnormality secondary to bouts of diarrhea, generalized hydration. Tachycardic but generally well-appearing otherwise. - Vital Signs Vital signs: Temp Pulse Resp BP Pulse Ox 99 F 119 H 18 119/89 H 97 12/03/17 21:44 12/03/17 21:44 12/03/17 21:44 12/03/17 21:44 12/03/17 21:44
[2017-12-03 23:33] LABS: ABSOLUTE BASOPHILS # (AUTO) 0.1 10^3/uL (0.0-0.2); ABSOLUTE EOSINOPHILS # (AUTO) 0.1 10^3/uL (0.0-0.6); ABSOLUTE LYMPHOCYTES (AUTO) 2.7 10^3/uL (0.5-4.7); ABSOLUTE MONOCYTES (AUTO) 0.6 10^3/uL (0.1-1.4); ABSOLUTE NEUT (AUTO) 8.9 10^3/uL (1.7-8.2); BASOPHILS % (AUTO) 0.8 % (0-2); EOSINOPHILS % (AUTO) 0.8 % (0-6); HEMATOCRIT 42.8 % (36.0-47.0); HEMOGLOBIN 14.2 g/dL (12.0-15.5); LYMPHOCYTES % (AUTO) 21.6 % (13-45); MEAN CORPUSCULAR HEMOGLOBIN 27.8 pg (27.0-33.4); MEAN CORPUSCULAR HGB CONC 33.3 g/dL (32.0-36.0); MEAN CORPUSCULAR VOLUME 84 fl (80-97); MONOCYTES % (AUTO) 4.5 % (3-13); PLATELET COUNT 495 10^3/uL (150-450); RED BLOOD COUNT 5.13 10^6/uL (3.72-5.28); RED CELL DISTRIBUTION WIDTH 14.4 % (11.5-14.0); SEGMENTED NEUTROPHILS % (AUTO) 72.3 % (42-78); TOTAL CELLS COUNTED % (AUTO) 100 %; WHITE BLOOD COUNT 12.3 10^3/uL (4.0-10.5)
[2017-12-03 23:43] LABS: ALANINE AMINOTRANSFERASE 39 U/L (9-52); ALBUMIN 5.1 g/dL (3.5-5.0); ALKALINE PHOSPHATASE 92 U/L (38-126); ANION GAP 17 (5-19); ASPARTATE AMINO TRANSFERASE 22 U/L (14-36); BILIRUBIN,DIRECT 0.2 mg/dL (0.0-0.4); BILIRUBIN,TOTAL 0.4 mg/dL (0.2-1.3); BLOOD UREA NITROGEN 9 mg/dL (7-20); CALCIUM 10.3 mg/dL (8.4-10.2); CARBON DIOXIDE 18 mmol/L (22-30); CHLORIDE 107 mmol/L (98-107); GLUCOSE 112 mg/dL (75-110); POTASSIUM 4.2 mmol/L (3.6-5.0); SODIUM 141.6 mmol/L (137-145); TOTAL PROTEIN 8.5 g/dL (6.3-8.2)
[2017-12-03] MEDS ORDERED: ONDANSETRON HCL INJ/PF 4 MG/2 ML SDV IV ONE (23:46)
--- NOTE | 2017-12-03 23:50 | ER Document Report ---
ED General - General Chief Complaint: Headache Stated Complaint: HEADACHE AND BACK PAIN Time Seen by Provider: 12/03/17 22:41 Notes: Patient is a 37-year-old female who presents with complaint of feeling weak and having nausea and some vomiting. She says that she is felt unwell for a long time. She has a history of recommend spotted fever and Lyme's disease. She had recent tibial plateau fracture and she had preoperative labs. She says she was called a few days ago and told that her Lyme and recommend spotted fever both still active that she need to see her doctor. She has been able to follow- up with her doctor. Says she is continued felt weak and had some nausea. She has had mild headache. She also has some lower back pain from where she fell. Her pain is mainly over the right gluteal region. She denies any other injuries from falls. She does fall frequently. She has been seen here many many times for falls. She says she does not know why she falls so often. She says she feels as if she has had fevers but she has not checked her temp at home. She says she just felt warm. She denies any diarrhea. No blood in her stools. No blood or emesis. No abdominal pain. No cough or congestion. No dysuria. No other complaints at this time. TRAVEL OUTSIDE OF THE [place] IN LAST 30 DAYS: No - Related Data Allergies/Adverse Reactions: hydromorphone HCl [From Dilaudid] Allergy (Intermediate, Verified 10/04/17 09:58 ) thrush sulfamethoxazole [From Septra] Allergy (Intermediate, Verified 10/04/17 09:58) thrush trimethoprim [From Septra] Allergy (Intermediate, Verified 10/04/17 09:58) thrush duloxetine HCl [From Cymbalta] Allergy (Verified 10/04/17 09:58) Disorientation milnacipran HCl [From Savella] Allergy (Verified 10/04/17 09:58) Disorientation pregabalin [From Lyrica] Allergy (Verified 10/08/17 03:36) Past Medical History - Social History Smoking Status: Unknown if Ever Smoked Frequency of alcohol use: None Drug Abuse: None Family History: CAD, CVA, Hyperlipidemia, Hypertension, Malignancy, Thyroid Disfunction - Past Medical History Cardiac Medical History: Denies: Hx Pulmonary Embolism Pulmonary Medical History: Reports: Hx Asthma - H/O YRS AGO, NOT CURRENTLY ON MEDS Denies: Hx Bronchitis, Hx COPD, Hx Pneumonia, Hx Respiratory Failure, Hx Sleep Apnea, Hx Tuberculosis Neurological Medical History: Reports: Hx Migraine, Hx Seizures - H/O BABY- FEBRILE SEIZURE. Denies: Hx Cerebrovascular Accident Renal/ Medical History: Reports: Hx Kidney Stones, Hx Ovarian Cysts, Hx Pelvic Inflammatory Disease. Denies: Hx End Stage Renal Disease, Hx Peritoneal Dialysis Malignancy Medical History: Denies: Hx Breast Cancer, Hx Cervical Cancer, Hx Lung Cancer, Hx Ovarian Cancer GI Medical History: Reports: Hx Crohn's Disease, Hx Diverticulitis, Hx Gastroesophageal Reflux Disease, Hx Irritable Bowel, Hx Colonoscopy, Hx Endoscopy. Denies: Hx Hiatal Hernia, Hx Liver Failure, Hx Pancreatitis, Hx Ulcer Musculoskeltal Medical History: Denies Hx Arthritis, Reports Hx Fibromyalgia, Denies Hx Multiple Sclerosis, Denies Hx Muscular Dystrophy, Reports Hx Musculoskeletal Deformity, Reports Hx Musculoskeletal Trauma Psychiatric Medical History: Reports: Hx Attention Deficit Hyperactivity Disorder, Hx Depression, Hx Obsessive Compulsive Disorder Denies: Hx Bipolar Disorder, Hx Dementia, Hx Post Traumatic Stress Disorder, Hx Schizophrenia Traumatic Medical History: Reports: Hx Fractures - TIB/FIB Infectious Medical History: Past Surgical History: Reports: Hx Genitourinary Surgery - Bladder Tack, Hx Hysterectomy, Hx Tonsillectomy - ADENOIDS. Denies: Hx Appendectomy, Hx Bowel Surgery, Hx Section, Hx Cholecystectomy, Hx Colostomy, Hx Coronary Artery Bypass Graft, Hx Gastric Bypass Surgery, Hx Herniorrhaphy, Hx Mastectomy , Hx Pacemaker, Hx Tubal Ligation - Immunizations Hx Diphtheria, Pertussis, Tetanus Vaccination: Yes Review of Systems - Review of Systems Notes: My Normal Review Basic REVIEW OF SYSTEMS: CONSTITUTIONAL : Denies fever, chills, or sweats. Denies recent illness. EENT: Denies eye, ear, throat, or mouth pain or symptoms. Denies nasal or sinus congestion. CARDIOVASCULAR: Denies chest pain. RESPIRATORY: Denies cough, cold, or chest congestion. Denies shortness of breath, difficulty breathing, or wheezing. GASTROINTESTINAL: Denies abdominal pain. Some vomiting. GENITOURINARY: Denies difficulty urinating, painful urination, burning, frequency, or blood in urine. FEMALE GENITOURINARY: Denies vaginal bleeding, abnormal or irregular periods. LMP: MUSCULOSKELETAL: Denies neck or back pain or joint pain or swelling. SKIN: Denies rash or skin lesions. NEUROLOGICAL: Denies altered mental status or loss of consciousness. No focal weakness.. Denies problems with gait or speech. Denies sensory or motor loss. ALL OTHER SYSTEMS REVIEWED AND NEGATIVE. Physical Exam - Vital signs Vitals: Temp Pulse Resp BP Pulse Ox 99 F 119 H 18 119/89 H 97 12/03/17 21:44 12/03/17 21:44 12/03/17 21:44 12/03/17 21:44 12/03/17 21:44 - Notes Notes: General Appearance: Well nourished, alert, cooperative, no acute distress, no obvious discomfort. Vitals: reviewed, See vital signs table. Head: no swelling or tenderness to the head Eyes: PERRL, EOMI, Conjuctiva clear Mouth: No decreasd moisture Throat: No tonsillar inflammation, No airway obstruction, No lymphadenopathy Neck: Supple, no neck tenderness, no step-offs or deformities. Lungs: No wheezing, No rales, No rhonci, No accessory muscle use, good air exchange bilaterally. Heart: tachycardiac rate, Regular rythm, No murmur, no rub Abdomen: Normal BS, soft, No rigidity, No abdominal tenderness, No guarding, no rebound, no abdominal masses, no organomegaly Back: Patient has no tenderness palpation over the midline thoracic or lumbar spine. She does have some tenderness palpation mainly over the gluteal region on the right. She also has some tenderness over the left gluteal region as well. Extremities: strength 5/5 in all extremities, good pulses in all extremities, no swelling or tenderness in the extremities, no edema. Skin: warm, dry, appropriate color, no rash Neuro: speech clear, oriented x 3, normal affect, responds appropriately to questions. Cranial nerves II through XII are intact. Distal sensation intact. Patient moves all extremities without difficulty. Course - Re-evaluation Re-evalutation: 12/04/17 06:01 Patient's laboratory evaluation is consistent with that of most likely dehydration. She is adamant that she was by the health department that the workup that she had for Lyme's disease and recommends. Positive fever showed recurrence of 1 of them and that she needed current treatment. She has not yet been able to get into her doctor. I do not have these test results unfortunately. I will place her on doxycycline. I informed her that it is be very rare for her to have recurrence of those infection; however, if this is what she is told by the health department we will err on the side of caution and treat her until she follows up with her doctor to review these studies further. Currently her laboratory evaluation is unremarkable except for just a very mild metabolic acidosis which I think is probably related to some dehydration. Clinically she looks very well. I feel she is safe to be discharged home. Encouraged to drink fluids. I will prescribe her some nausea medicine. I encouraged her return to ER if she has fevers or feels that she is worsening. Patient agrees with plan will be discharged home. Dictation of this chart was performed using voice recognition software; therefore, there may be some unintended grammatical errors. - Vital Signs Vital signs: Temp Pulse Resp BP Pulse Ox 98.3 F 84 20 125/88 H 98 12/04/17 01:31 12/04/17 01:31 12/03/17 22:02 12/04/17 01:31 12/04/17 01:31 - Laboratory Result Diagrams: 12/03/17 23:13 12/03/17 23:13 Laboratory results interpreted by me: 12/03/17 12/03/17 12/04/17 23:13 23:13 00:19 WBC 12.3 H RDW 14.4 H Plt Count 495 H Absolute Neutrophils 8.9 H Carbon Dioxide 18 L Glucose 112 H Calcium 10.3 H Total Protein 8.5 H Albumin 5.1 H Urine Blood SMALL H Urine Urobilinogen 2.0 H Ur Leukocyte Esterase TRACE H Discharge - Discharge Clinical Impression: Weakness Vomiting Qualifiers: Vomiting type: unspecified Vomiting Intractability: non-intractable Nausea presence: with nausea Qualified Code(s): R11.2 - Nausea with vomiting, unspecified Back pain Qualifiers: Back pain location: low back pain Chronicity: acute Sciatica presence: without sciatica Condition: Good Disposition: HOME, SELF-CARE Additional Instructions: Your history and laboratory evaluation have some concerns for some dehydration. That is why we gave you some IV fluids. Please continue to try and drink and stay well-hydrated. I will write a prescription for some nausea medicine. Being that you had the recent phone call saying that your Lyme and [place] spotted fever titers are showing concerns for recurrent infection, we will place her back on doxycycline until he can follow-up closely with your primary care doctor for reevaluation. Please return to the ER if you have fevers, intractable vomiting, or feel that you are worsening. Please follow up with your doctor this week for reevaluation. Prescriptions: Doxycycline Hyclate 100 mg PO BID #14 capsule Ondansetron [Zofran Odt 4 mg Tablet] 1 tab PO Q4H PRN #15 tab.rapdis PRN Reason: For Nausea/Vomiting
[2017-12-04 00:45] LABS: APPEARANCE,URINE SLIGHTLY-CLOUDY; BILIRUBIN,URINE NEGATIVE (NEGATIVE); COLOR,URINE YELLOW; GLUCOSE, URINE NEGATIVE (NEGATIVE); KETONES,URINE NEGATIVE (NEGATIVE); LEUKOCYTE ESTERASE,URINE TRACE (NEGATIVE); NITRITE,URINE NEGATIVE (NEGATIVE); PROTEIN,URINE NEGATIVE (NEGATIVE); URINE SPECIFIC GRAVITY 1.021
[2017-12-04] MEDS ORDERED: ONDANSETRON ODT 4 MG TAB (6 TAB/ER DISP) PO PRN (01:18)
[2017-12-04] MEDS ORDERED: DOXYCYCLINE HYCLATE 100 MG TABLET PO ONE (01:18)
[2017-12-04 01:37] VITALS: BP 125/88
== END 2017-12-04 01:47 | disposition home or self-care (01) ==
LOC: ER 21:43
DX: R53.1 Weakness (principal); R11.2 Nausea with vomiting, unspecified; M54.5 Low back pain; R51 Headache; Z88.3 Allergy status to other anti-infective agents; Z87.442 Personal history of urinary calculi; Z90.710 Acquired absence of both cervix and uterus
CPT/HCPCS: 99284; 96361; 96374; 36415; 85025; 80053; 81001; J3490; J2405; J7030

== ENCOUNTER 2017-12-05 21:18 | Emergency (ER) | payer MEDICAID ==
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
[2017-12-05] MEDS ORDERED: NORMAL SALINE 1000 ML 1,000 ML IV ONE (21:49)
[2017-12-05 22:32] LABS: ABSOLUTE BASOPHILS # (AUTO) 0.1 10^3/uL (0.0-0.2); ABSOLUTE EOSINOPHILS # (AUTO) 0.2 10^3/uL (0.0-0.6); ABSOLUTE LYMPHOCYTES (AUTO) 2.9 10^3/uL (0.5-4.7); ABSOLUTE MONOCYTES (AUTO) 0.5 10^3/uL (0.1-1.4); BASOPHILS % (AUTO) 1.2 % (0-2); EOSINOPHILS % (AUTO) 1.8 % (0-6); HEMATOCRIT 38.4 % (36.0-47.0); HEMOGLOBIN 12.7 g/dL (12.0-15.5); LYMPHOCYTES % (AUTO) 30.1 % (13-45); MEAN CORPUSCULAR HEMOGLOBIN 27.7 pg (27.0-33.4); MEAN CORPUSCULAR HGB CONC 33.1 g/dL (32.0-36.0); MEAN CORPUSCULAR VOLUME 84 fl (80-97); MONOCYTES % (AUTO) 4.7 % (3-13); PLATELET COUNT 437 10^3/uL (150-450); RED BLOOD COUNT 4.59 10^6/uL (3.72-5.28); RED CELL DISTRIBUTION WIDTH 14.5 % (11.5-14.0); SEGMENTED NEUTROPHILS % (AUTO) 62.2 % (42-78); TOTAL CELLS COUNTED % (AUTO) 100 %; WHITE BLOOD COUNT 9.7 10^3/uL (4.0-10.5)
[2017-12-05 22:45] LABS: ALANINE AMINOTRANSFERASE 26 U/L (9-52); ALBUMIN 4.8 g/dL (3.5-5.0); ALKALINE PHOSPHATASE 85 U/L (38-126); ANION GAP 15 (5-19); ASPARTATE AMINO TRANSFERASE 18 U/L (14-36); BILIRUBIN,DIRECT 0.3 mg/dL (0.0-0.4); BILIRUBIN,TOTAL 0.5 mg/dL (0.2-1.3); BLOOD UREA NITROGEN 8 mg/dL (7-20); CALCIUM 9.9 mg/dL (8.4-10.2); CARBON DIOXIDE 21 mmol/L (22-30); CHLORIDE 107 mmol/L (98-107); GLUCOSE 100 mg/dL (75-110); LIPASE 70.9 U/L (23-300); POTASSIUM 3.8 mmol/L (3.6-5.0); SODIUM 142.9 mmol/L (137-145); TOTAL PROTEIN 7.9 g/dL (6.3-8.2)
[2017-12-05 23:09] LABS: APPEARANCE,URINE SLIGHTLY-CLOUDY; BILIRUBIN,URINE NEGATIVE (NEGATIVE); COLOR,URINE YELLOW; GLUCOSE, URINE NEGATIVE (NEGATIVE); KETONES,URINE NEGATIVE (NEGATIVE); LEUKOCYTE ESTERASE,URINE NEGATIVE (NEGATIVE); NITRITE,URINE NEGATIVE (NEGATIVE); PROTEIN,URINE NEGATIVE (NEGATIVE); URINE SPECIFIC GRAVITY 1.025; UROBILINOGEN,URINE NEGATIVE mg/dL (<2.0)
--- NOTE | 2017-12-05 23:17 | RADIOLOGY REPORT (SQ) ---
EXAM DESCRIPTION: CT ABD/PELVIS WITH IV ONLY CLINICAL HISTORY: 37 years Female, abd pain, diarrhea COMPARISON: 3.8.17 TECHNIQUE: 100 mL Isovue-370 contrast. Coronal and sagittal reformat. This exam was performed according to our departmental dose-optimization program, which includes automated exposure control, adjustment of the mA and/or kV according to patient size and/or use of iterative reconstruction technique. FINDINGS: No acute findings. No significant free fluid. Minimal diverticulosis. Normal appendix. Inferior thorax, liver, gallbladder, pancreas, spleen, adrenals, renal system, gastrointestinal tract, pelvic organs, lymphatics, vasculature, and musculoskeleton appear otherwise unremarkable. No significant free fluid. IMPRESSION: No acute findings.
[2017-12-05] MEDS ORDERED: ONDANSETRON ODT 4 MG TAB (6 TAB/ER DISP) PO PRN (23:26)
[2017-12-05] MEDS ORDERED: LOPERAMIDE HCL 2 MG CAPSULE PO ONE (23:57)
[2017-12-06 00:32] VITALS: BP 129/89
== END 2017-12-06 00:32 | disposition home or self-care (01) ==
LOC: ER 21:18
DX: R10.84 Generalized abdominal pain (principal); R19.7 Diarrhea, unspecified; R63.0 Anorexia; K57.90 Diverticulosis of intestine, part unspecified, without perforation or abscess without bleeding; S30.0XXA Contusion of lower back and pelvis, initial encounter; X58.XXXA Exposure to other specified factors, initial encounter; A77.0 Spotted fever due to Rickettsia rickettsii; J45.909 Unspecified asthma, uncomplicated; Z87.19 Personal history of other diseases of the digestive system; Z87.442 Personal history of urinary calculi; Z87.42 Personal history of other diseases of the female genital tract; Z88.5 Allergy status to narcotic agent; Z88.1 Allergy status to other antibiotic agents; Z88.8 Allergy status to other drugs, medicaments and biological substances; Z88.6 Allergy status to analgesic agent
CPT/HCPCS: 99284; 96360; 36415; 87045; 87086; 87205; 87209; 83690; 87177; 85025; 82272; 80053; 81001; 74177; J7030

== ENCOUNTER 2018-09-22 11:56 | Emergency (ER) | payer MEDICAID ==
[2018-09-22 12:03] VITALS: BP 134/79
[2018-09-22] MEDS ORDERED: NORMAL SALINE 1000 ML 1,000 ML IV ONE (12:17)
--- NOTE | 2018-09-22 12:17 | ER Document Report ---
ED Medical Screen (RME) - General Chief Complaint: Chest Pain Stated Complaint: CHEST PAIN Time Seen by Provider: 09/22/18 12:06 Notes: Patient is a 37-year-old female that presents to the emergency department for chief complaint of chest pain or shortness of breath. Patient reports has been having midsternal chest pain that radiates to her left jaw over the last several days, starting this past , describes it as constant, worse with exertion, she had associated nausea as well. Reports her father had an PR at age 45. She reports she is a history of high cholesterol, but denies hypertension or diabetes mellitus, and she does not smoke. ROS: Unless otherwise stated in this report the patient's positive and negative responses for review of systems for constitutional, eyes, ENT, cardiovascular, respiratory, gastrointestinal, neurological, genitourinary, musculoskeletal, and integumentary systems and related systems to the presenting problem are either as stated in the HPI or were not pertinent or were negative for the symptoms and/or complaints related to the presenting medical problem. PHYSICAL EXAMINATION: Vital signs reviewed. GENERAL: Well-appearing, well-nourished and in no acute distress. HEAD: Atraumatic, normocephalic. EYES: Pupils equal round extraocular movements intact, conjunctiva are normal. ENT: Nares patent NECK: Normal range of motion CV: Heart regular rate and rhythm, reproducible chest wall tenderness to palpation LUNGS: No respiratory distress Musculoskeletal: Normal range of motion NEUROLOGICAL: Normal speech PSYCH: Normal mood, normal affect. MDM: Patient seen and examined for rapid initial assessment. Vital signs reviewed. A comprehensive ED assessment and evaluation of the patient, analysis of test results and completion of the medical decision making process will be conducted by additional ED providers. *Note is created using voice recognition software and may contain spelling, syntax or grammatical errors. TRAVEL OUTSIDE OF THE [place] IN LAST 30 DAYS: No - Related Data Allergies/Adverse Reactions: hydromorphone HCl [From Dilaudid] Allergy (Intermediate, Verified 10/04/17 09:58 ) thrush sulfamethoxazole [From Septra] Allergy (Intermediate, Verified 10/04/17 09:58) thrush trimethoprim [From Septra] Allergy (Intermediate, Verified 10/04/17 09:58) thrush duloxetine HCl [From Cymbalta] Allergy (Verified 10/04/17 09:58) Disorientation milnacipran HCl [From Savella] Allergy (Verified 10/04/17 09:58) Disorientation pregabalin [From Lyrica] Allergy (Verified 10/08/17 03:36) Past Medical History - Social History Chew tobacco use (# tins/day): No Frequency of alcohol use: None Drug Abuse: None - Past Medical History Cardiac Medical History: Denies: Hx Pulmonary Embolism Pulmonary Medical History: Reports: Hx Asthma - H/O YRS AGO, NOT CURRENTLY ON MEDS Denies: Hx Bronchitis, Hx COPD, Hx Pneumonia, Hx Respiratory Failure, Hx Sleep Apnea, Hx Tuberculosis Neurological Medical History: Reports: Hx Migraine, Hx Seizures - H/O BABY- FEBRILE SEIZURE. Denies: Hx Cerebrovascular Accident Renal/ Medical History: Reports: Hx Kidney Stones, Hx Ovarian Cysts, Hx Pelvic Inflammatory Disease. Denies: Hx End Stage Renal Disease, Hx Peritoneal Dialysis Malignancy Medical History: Denies: Hx Breast Cancer, Hx Cervical Cancer, Hx Lung Cancer, Hx Ovarian Cancer GI Medical History: Reports: Hx Crohn's Disease, Hx Diverticulitis, Hx Gastroesophageal Reflux Disease, Hx Irritable Bowel, Hx Colonoscopy, Hx Endoscopy. Denies: Hx Hiatal Hernia, Hx Liver Failure, Hx Pancreatitis, Hx Ulcer Musculoskeltal Medical History: Denies Hx Arthritis, Reports Hx Fibromyalgia, Denies Hx Multiple Sclerosis, Denies Hx Muscular Dystrophy, Reports Hx Musculoskeletal Deformity, Reports Hx Musculoskeletal Trauma Psychiatric Medical History: Reports: Hx Attention Deficit Hyperactivity Disorder, Hx Depression, Hx Obsessive Compulsive Disorder Denies: Hx Bipolar Disorder, Hx Dementia, Hx Post Traumatic Stress Disorder, Hx Schizophrenia Traumatic Medical History: Reports: Hx Fractures - TIB/FIB Infectious Medical History: Past Surgical History: Reports: Hx Genitourinary Surgery - Bladder Tack, Hx Hysterectomy, Hx Orthopedic Surgery - tibia plateu fx, torn miniscus, Hx Tonsillectomy - ADENOIDS. Denies: Hx Appendectomy, Hx Bowel Surgery, Hx Section, Hx Cholecystectomy, Hx Colostomy, Hx Coronary Artery Bypass Graft, Hx Gastric Bypass Surgery, Hx Herniorrhaphy, Hx Mastectomy, Hx Pacemaker , Hx Tubal Ligation - Immunizations Hx Diphtheria, Pertussis, Tetanus Vaccination: Yes History of Influenza Vaccine for 09/2017 - 01/2018 Season: Refused Physical Exam - Vital signs Vitals: Temp Pulse Resp BP Pulse Ox 98.5 F 119 H 16 134/79 H 98 09/22/18 11:59 09/22/18 11:59 09/22/18 11:59 09/22/18 11:59 09/22/18 11:59 Course - Vital Signs Vital signs: Temp Pulse Resp BP Pulse Ox 98.5 F 119 H 16 134/79 H 98 09/22/18 11:59 09/22/18 11:59 09/22/18 11:59 09/22/18 11:59 09/22/18 11:59 Doctor's Discharge - Discharge Referrals: RUBI LARSON, [Primary Care Provider] - Follow up as needed
--- NOTE | 2018-09-22 12:50 | ER Document Report ---
ED General - General Chief Complaint: Chest Pain Stated Complaint: CHEST PAIN Time Seen by Provider: 09/22/18 12:06 Mode of Arrival: Ambulatory Information source: Patient Notes: 37-year-old female [facility] emergency department with complaints of chest pain. Patient states that it is midsternal and radiates to the left jaw and left arm. She describes the pain as an aching/pressure sensation. It has been constant over the last 3 days. She denies any alleviating or exacerbating factors. She does have associated nausea but denies any vomiting or diaphoresis. Patient states that her father had an CT at age 45. She says that she has a history of high cholesterol but denies any history of coronary artery disease, diabetes, hypertension. She does not smoke. Patient denies any recent travel, recent surgery, calf pain, calf swelling, history of DVT or PE. TRAVEL OUTSIDE OF THE [place] IN LAST 30 DAYS: No - HPI Onset: Other - 3 days Onset/Duration: Gradual Quality of pain: Achy, Pressure Severity: Mild Associated symptoms: Nausea Exacerbated by: Denies Relieved by: Denies Similar symptoms previously: No Recently seen / treated by doctor: No - Related Data Allergies/Adverse Reactions: hydromorphone HCl [From Dilaudid] Allergy (Intermediate, Verified 10/04/17 09:58 ) thrush sulfamethoxazole [From Septra] Allergy (Intermediate, Verified 10/04/17 09:58) thrush trimethoprim [From Septra] Allergy (Intermediate, Verified 10/04/17 09:58) thrush duloxetine HCl [From Cymbalta] Allergy (Verified 10/04/17 09:58) Disorientation milnacipran HCl [From Savella] Allergy (Verified 10/04/17 09:58) Disorientation pregabalin [From Lyrica] Allergy (Verified 10/08/17 03:36) Past Medical History - General Information source: Patient - Social History Smoking Status: Never Smoker Chew tobacco use (# tins/day): No Frequency of alcohol use: None Drug Abuse: None Family History: CAD, CVA, Hyperlipidemia, Hypertension, Malignancy, Thyroid Disfunction Patient has suicidal ideation: No Patient has homicidal ideation: No - Past Medical History Cardiac Medical History: Denies: Hx Pulmonary Embolism Pulmonary Medical History: Reports: Hx Asthma - H/O YRS AGO, NOT CURRENTLY ON MEDS Denies: Hx Bronchitis, Hx COPD, Hx Pneumonia, Hx Respiratory Failure, Hx Sleep Apnea, Hx Tuberculosis Neurological Medical History: Reports: Hx Migraine, Hx Seizures - H/O BABY- FEBRILE SEIZURE. Denies: Hx Cerebrovascular Accident Renal/ Medical History: Reports: Hx Kidney Stones, Hx Ovarian Cysts, Hx Pelvic Inflammatory Disease. Denies: Hx End Stage Renal Disease, Hx Peritoneal Dialysis Malignancy Medical History: Denies: Hx Breast Cancer, Hx Cervical Cancer, Hx Lung Cancer, Hx Ovarian Cancer GI Medical History: Reports: Hx Crohn's Disease, Hx Diverticulitis, Hx Gastroesophageal Reflux Disease, Hx Irritable Bowel, Hx Colonoscopy, Hx Endoscopy. Denies: Hx Hiatal Hernia, Hx Liver Failure, Hx Pancreatitis, Hx Ulcer Musculoskeletal Medical History: Denies Hx Arthritis, Reports Hx Fibromyalgia, Denies Hx Multiple Sclerosis, Denies Hx Muscular Dystrophy, Reports Hx Musculoskeletal Deformity, Reports Hx Musculoskeletal Trauma Psychiatric Medical History: Reports: Hx Attention Deficit Hyperactivity Disorder, Hx Depression, Hx Obsessive Compulsive Disorder Denies: Hx Bipolar Disorder, Hx Dementia, Hx Post Traumatic Stress Disorder, Hx Schizophrenia Traumatic Medical History: Reports: Hx Fractures - TIB/FIB Infectious Medical History: Past Surgical History: Reports: Hx Genitourinary Surgery - Bladder Tack, Hx Hysterectomy, Hx Orthopedic Surgery - tibia plateu fx, torn miniscus, Hx Tonsillectomy - ADENOIDS. Denies: Hx Appendectomy, Hx Bowel Surgery, Hx Section, Hx Cholecystectomy, Hx Colostomy, Hx Coronary Artery Bypass Graft, Hx Gastric Bypass Surgery, Hx Herniorrhaphy, Hx Mastectomy, Hx Pacemaker , Hx Tubal Ligation - Immunizations Hx Diphtheria, Pertussis, Tetanus Vaccination: Yes Review of Systems - Review of Systems Constitutional: No symptoms reported EENT: No symptoms reported Cardiovascular: Chest pain Respiratory: No symptoms reported Gastrointestinal: No symptoms reported Genitourinary: No symptoms reported Female Genitourinary: No symptoms reported Musculoskeletal: No symptoms reported Skin: No symptoms reported Hematologic/Lymphatic: No symptoms reported Neurological/Psychological: No symptoms reported Physical Exam - Vital signs Vitals: Temp Pulse Resp BP Pulse Ox 98.5 F 119 H 16 134/79 H 98 09/22/18 11:59 09/22/18 11:59 09/22/18 11:59 09/22/18 11:59 09/22/18 11:59 - General Notes: PHYSICAL EXAMINATION: GENERAL: Well-appearing, well-nourished and in no acute distress. HEAD: Atraumatic, normocephalic. EYES: Pupils equal round and reactive to light, extraocular movements intact, conjunctiva are normal. ENT: Nares patent, oropharynx clear without exudates. Moist mucous membranes. NECK: Normal range of motion, supple without lymphadenopathy LUNGS: Breath sounds clear to auscultation bilaterally and equal. No wheezes rales or rhonchi. HEART: Regular rate and rhythm without murmurs ABDOMEN: Soft, nontender, nondistended abdomen. No guarding, no rebound. No masses appreciated. Female : deferred Musculoskeletal: Normal range of motion, no pitting or edema. No cyanosis. NEUROLOGICAL: Cranial nerves grossly intact. Normal speech, normal gait. Normal sensory, motor exams PSYCH: Normal mood, normal affect. SKIN: Warm, Dry, normal turgor, no rashes or lesions noted. Course - Re-evaluation Re-evalutation: 09/22/18 12:49 EKG: Ventricular rate 101, IN interval 127, castration 66, QTc 441, sinus tachycardia. No ischemic changes. 09/22/18 15:35 Patient is requesting to leave AGAINST MEDICAL ADVICE. Patient understands that her condition may worsen or she may by leaving AGAINST MEDICAL ADVICE. She is of sound mind to make decisions. She is competent. Patient was instructed to follow-up with her primary care physician this week, to continue taking medications as directed, and to return to emergency department for worsening symptoms. - Vital Signs Vital signs: Temp Pulse Resp BP Pulse Ox 98.5 F 119 H 16 134/79 H 95 09/22/18 11:59 09/22/18 11:59 09/22/18 11:59 09/22/18 11:59 09/22/18 13:38 - Laboratory Result Diagrams: 09/22/18 13:21 09/22/18 13:21 Laboratory results interpreted by me: 09/22/18 09/22/18 13:21 13:21 WBC 11.6 H RBC 5.29 H Plt Count 507 H Absolute Neutrophils 8.6 H Glucose 119 H Calcium 10.4 H Total Protein 8.6 H Discharge - Discharge Clinical Impression: Chest pain Qualifiers: Chest pain type: unspecified Qualified Code(s): R07.9 - Chest pain, unspecified Condition: Stable Disposition: AGAINST MEDICAL ADVICE Instructions: Chest Pain of Unclear Cause ([facility]) Referrals: RUBI LARSON, [Primary Care Provider] - Follow up as needed
[2018-09-22] MEDS ORDERED: ASPIRIN 81 MG TABLET, CHEWABLE PO ONE (12:55)
[2018-09-22 13:37] LABS: ABSOLUTE BASOPHILS # (AUTO) 0.1 10^3/uL (0.0-0.2); ABSOLUTE LYMPHOCYTES (AUTO) 2.3 10^3/uL (0.5-4.7); ABSOLUTE MONOCYTES (AUTO) 0.5 10^3/uL (0.1-1.4); ABSOLUTE NEUT (AUTO) 8.6 10^3/uL (1.7-8.2); BASOPHILS % (AUTO) 0.6 % (0-2); EOSINOPHILS % (AUTO) 0.3 % (0-6); HEMOGLOBIN 14.7 g/dL (12.0-15.5); MEAN CORPUSCULAR HEMOGLOBIN 27.8 pg (27.0-33.4); MEAN CORPUSCULAR HGB CONC 33.4 g/dL (32.0-36.0); MEAN CORPUSCULAR VOLUME 83 fl (80-97); MONOCYTES % (AUTO) 4.7 % (3-13); PLATELET COUNT 507 10^3/uL (150-450); RED BLOOD COUNT 5.29 10^6/uL (3.72-5.28); RED CELL DISTRIBUTION WIDTH 13.6 % (11.5-14.0); SEGMENTED NEUTROPHILS % (AUTO) 74.4 % (42-78); TOTAL CELLS COUNTED % (AUTO) 100 %; WHITE BLOOD COUNT 11.6 10^3/uL (4.0-10.5)
[2018-09-22 13:58] LABS: ALANINE AMINOTRANSFERASE 19 U/L (9-52); ALKALINE PHOSPHATASE 90 U/L (38-126); ANION GAP 15 (5-19); ASPARTATE AMINO TRANSFERASE 14 U/L (14-36); BILIRUBIN,DIRECT 0.3 mg/dL (0.0-0.4); BILIRUBIN,TOTAL 0.7 mg/dL (0.2-1.3); BLOOD UREA NITROGEN 11 mg/dL (7-20); CALCIUM 10.4 mg/dL (8.4-10.2); CARBON DIOXIDE 22 mmol/L (22-30); CHLORIDE 105 mmol/L (98-107); GLUCOSE 119 mg/dL (75-110); POTASSIUM 4.5 mmol/L (3.6-5.0); SODIUM 141.6 mmol/L (137-145); TOTAL PROTEIN 8.6 g/dL (6.3-8.2)
--- NOTE | 2018-09-22 14:00 | RADIOLOGY REPORT (SQ) ---
EXAM DESCRIPTION: CHEST SINGLE VIEW COMPLETED DATE/TIME: 09/22/2018 1:47 pm REASON FOR STUDY: chest pain COMPARISON: None. NUMBER OF VIEWS: One view. TECHNIQUE: Single frontal radiographic view of the chest acquired. LIMITATIONS: None. FINDINGS: LUNGS AND PLEURA: No opacities, masses or pneumothorax. No pleural effusion. MEDIASTINUM AND HILAR STRUCTURES: No masses. Contour normal. HEART AND VASCULAR STRUCTURES: Heart normal in size. Normal vasculature. BONES: No acute findings. HARDWARE: None in the chest. OTHER: No other significant finding. IMPRESSION: NO SIGNIFICANT RADIOGRAPHIC FINDING IN THE CHEST. TECHNICAL DOCUMENTATION: JOB ID: [id number] [email or web address]- All Rights Reserved Reading location - IP/workstation name: [email or web address]
--- NOTE | 2018-09-22 23:21 | EKG REPORT ---
SEVERITY:- OTHERWISE NORMAL ECG - SINUS TACHYCARDIA NONSPECIFIC ST-T CHANGES : Confirmed by: Yadira Ross 22-Sep-2018 23:20:13
== END 2018-09-22 15:54 | disposition left against medical advice (07) ==
LOC: ER 11:56
DX: R07.9 Chest pain, unspecified (principal); R11.0 Nausea; Z88.3 Allergy status to other anti-infective agents; Z87.442 Personal history of urinary calculi
CPT/HCPCS: 93005; 99285; 96360; 36415; 85025; 80053; 84484; 85379; 71045; 93010; J7030

== ENCOUNTER 2018-10-01 12:17 | Emergency (ER) | payer MEDICAID ==
[2018-10-01 12:48] VITALS: BP 135/93
[2018-10-01] MEDS ORDERED: HYDROCODONE/ACETAMINOPHEN 5-325 MG TABLET PO ONE (13:17)
--- NOTE | 2018-10-01 14:26 | RADIOLOGY REPORT (SQ) ---
EXAM DESCRIPTION: ANKLE RIGHT COMPLETE COMPLETED DATE/TIME: 10/01/2018 2:14 pm REASON FOR STUDY: fall down steps COMPARISON: None. NUMBER OF VIEWS: Three views. TECHNIQUE: AP, lateral, and oblique radiographic images acquired of the right ankle. LIMITATIONS: None. FINDINGS: MINERALIZATION: Normal. BONES: No acute fracture or dislocation. No worrisome bone lesions. JOINTS: No effusions. SOFT TISSUES: No soft tissue swelling. No foreign body. OTHER: No other significant finding. IMPRESSION: NEGATIVE STUDY OF THE RIGHT ANKLE. NO RADIOGRAPHIC EVIDENCE OF ACUTE INJURY. TECHNICAL DOCUMENTATION: JOB ID: [id number] [employer]- All Rights Reserved Reading location - IP/workstation name: [email or web address]
--- NOTE | 2018-10-01 14:27 | RADIOLOGY REPORT (SQ) ---
EXAM DESCRIPTION: KNEE RIGHT 4 VIEWS COMPLETED DATE/TIME: 10/01/2018 2:14 pm REASON FOR STUDY: fall down steps COMPARISON: None. NUMBER OF VIEWS: Four views. TECHNIQUE: AP, lateral, and both oblique radiographic images acquired of the right knee. LIMITATIONS: None. FINDINGS: MINERALIZATION: Normal. BONES: No acute fracture. Cannulated screws are present in the proximal tibia. JOINT: No effusion. SOFT TISSUES: No soft tissue swelling. No radio-opaque foreign body. OTHER: No other significant finding. IMPRESSION: NEGATIVE STUDY OF THE RIGHT KNEE. NO RADIOGRAPHIC EVIDENCE OF ACUTE INJURY. TECHNICAL DOCUMENTATION: JOB ID: [id number] [employer]- All Rights Reserved Reading location - IP/workstation name: [email or web address]
--- NOTE | 2018-10-01 14:27 | RADIOLOGY REPORT (SQ) ---
EXAM DESCRIPTION: HIP RIGHT AP/LATERAL COMPLETED DATE/TIME: 10/01/2018 2:14 pm REASON FOR STUDY: fall down steps COMPARISON: None. NUMBER OF VIEWS: Two views. TECHNIQUE: AP pelvis and additional frog-leg view of the right hip. LIMITATIONS: None. FINDINGS: MINERALIZATION: Normal. RIGHT HIP: No fracture or dislocation. No worrisome bone lesions. LEFT HIP: No fracture or dislocation. No worrisome bone lesions. PUBIS AND ISCHIUM: No fracture. PELVIS: No fracture. SACRUM: No fracture or dislocation. No worrisome bone lesions. LOWER LUMBAR SPINE: No fracture or dislocation. No worrisome bone lesions. No significant disc disea se. SOFT TISSUES: No findings. OTHER: No other significant finding. IMPRESSION: NEGATIVE STUDY OF THE RIGHT HIP. NO RADIOGRAPHIC EVIDENCE OF ACUTE INJURY. TECHNICAL DOCUMENTATION: JOB ID: [id number] [employer]- All Rights Reserved Reading location - IP/workstation name: [email or web address]
--- NOTE | 2018-10-01 14:49 | ER Document Report ---
HPI - HPI Patient complains to provider of: Fall Onset: This morning Onset/Duration: Sudden Quality of pain: Achy Pain Level: 3 Context: She states she was walking down steps and fell down 2 steps injuring her right ankle knee and hip. Patient denies any head injury or loss of consciousness. Patient does report previous surgery on her right knee and complains of increased pain. Associated Symptoms: Other - Right hip ankle and knee pain. denies: Fever, Headache, Nausea, Vomiting Exacerbated by: Standing, Movement, Walking Relieved by: Denies Similar symptoms previously: No Recently seen / treated by doctor: No - ROS ROS below otherwise negative: Yes Systems Reviewed and Negative: Yes All other systems reviewed and negative - CONSTITUTIONAL Constitutional: DENIES: Fever - NEURO Neurology: DENIES: Weakness - GASTROINTESTINAL Gastrointestinal: DENIES: Nausea - REPRODUCTIVE Reproductive: DENIES: : - MUSCULOSKELETAL Musculoskeletal: REPORTS: Extremity pain - R knee and ankle - DERM Skin Color: Normal Skin Problems: None Past Medical History - General Information source: Patient - Social History Smoking Status: Never Smoker Frequency of alcohol use: None Drug Abuse: None Occupation: none Lives with: Family Family History: CAD, CVA, Hyperlipidemia, Hypertension, Malignancy, Thyroid Disfunction Patient has suicidal ideation: No Patient has homicidal ideation: No - Past Medical History Cardiac Medical History: Denies: Hx Pulmonary Embolism Pulmonary Medical History: Reports: Hx Asthma - H/O YRS AGO, NOT CURRENTLY ON MEDS Neurological Medical History: Reports: Hx Migraine Renal/ Medical History: Reports: Hx Kidney Stones, Hx Ovarian Cysts, Hx Pelvic Inflammatory Disease Malignancy Medical History: Denies: Hx Breast Cancer, Hx Cervical Cancer, Hx Lung Cancer, Hx Ovarian Cancer GI Medical History: Reports: Hx Crohn's Disease, Hx Diverticulitis, Hx Gastroesophageal Reflux Disease, Hx Irritable Bowel, Hx Colonoscopy, Hx Endoscopy. Denies: Hx Hiatal Hernia, Hx Liver Failure, Hx Pancreatitis, Hx Ulcer Musculoskeletal Medical History: Reports Hx Fibromyalgia, Reports Hx Musculoskeletal Deformity, Reports Hx Musculoskeletal Trauma Psychiatric Medical History: Reports: Hx Attention Deficit Hyperactivity Disorder, Hx Depression, Hx Obsessive Compulsive Disorder Denies: Hx Bipolar Disorder, Hx Dementia, Hx Post Traumatic Stress Disorder, Hx Schizophrenia Traumatic Medical History: Reports: Hx Fractures - TIB/FIB Infectious Medical History: Past Surgical History: Reports: Hx Genitourinary Surgery - Bladder Tack, Hx Hysterectomy, Hx Orthopedic Surgery - tibia plateu fx, torn miniscus, Hx Tonsillectomy - ADENOIDS - Immunizations Hx Diphtheria, Pertussis, Tetanus Vaccination: Yes Vertical Provider Document - CONSTITUTIONAL Agree With Documented VS: Yes Exam Limitations: No Limitations General Appearance: WD/WN, No Apparent Distress - INFECTION CONTROL TRAVEL OUTSIDE OF THE [place] IN LAST 30 DAYS: No - HEENT HEENT: Atraumatic, Normocephalic - NECK Neck: Normal Inspection - RESPIRATORY Respiratory: Breath Sounds Normal, No Respiratory Distress - CARDIOVASCULAR Cardiovascular: Regular Rate, Regular Rhythm Pulses: Normal: Dorsalis pedis - BACK Back: Normal Inspection - MUSCULOSKELETAL/EXTREMETIES Musculoskeletal/Extremeties: MAEW, Tender - Right ankle tenderness over lateral malleolar area, right knee tenderness to medial compartment, no laxity with varus or valgus maneuvers. Patellar tendon intact. Right lateral and posterior hip tenderness. Tenderness increases with range of motion., No Edema. negative: Eccymosis - NEURO Level of Consciousness: Awake, Alert, Appropriate Motor/Sensory: No Motor Deficit - DERM Integumentary: Warm, Dry, No Rash Course - Vital Signs Vital signs: Temp Pulse Resp BP Pulse Ox 98.1 F 116 H 16 135/93 H 97 10/01/18 12:45 10/01/18 12:45 10/01/18 12:45 10/01/18 12:45 10/01/18 12:45 - Diagnostic Test Radiology reviewed: Reports reviewed Procedures - Immobilization Right Knee Pre-Proc Neuro Vasc Exam: Normal Immobilizer type: Knee immobilizer Performed by: PCT Post-Proc Neuro Vasc Exam: Normal Alignment checked and good: Yes Right Ankle Pre-Proc Neuro Vasc Exam: Normal Immobilizer type: Ankle stirrup Performed by: PCT Post-Proc Neuro Vasc Exam: Normal Alignment checked and good: Yes Discharge - Discharge Clinical Impression: Fall Qualifiers: Encounter type: initial encounter Qualified Code(s): W19.XXXA - Unspecified fall, initial encounter Hip sprain Qualifiers: Encounter type: initial encounter Laterality: right Qualified Code(s): S73.101A - Unspecified sprain of right hip, initial encounter Right knee sprain Qualifiers: Encounter type: initial encounter Involved ligament of knee: unspecified ligament Qualified Code(s): S83.91XA - Sprain of unspecified site of right knee , initial encounter Right ankle sprain Qualifiers: Encounter type: initial encounter Involved ligament of ankle: unspecified ligament Qualified Code(s): S93.401A - Sprain of unspecified ligament of right ankle, initial encounter Condition: Stable Disposition: HOME, SELF-CARE Instructions: Use of Crutches ([facility]), Ice & Elevation ([facility]), Knee Immobilizing Splint ([facility]), Sprained Ankle ([facility]), Sprained Knee ([facility]) Additional Instructions: Return immediately for any new or worsening symptoms Followup with your primary care provider, call tomorrow to make a followup appointment Weightbearing as tolerated Follow-up with orthopedics for any persistent pain or problems Prescriptions: Naproxen [Naprosyn 250 Nmg Tablet] 1 tab PO BID #14 tablet Referrals: RUBI LARSON DO [Primary Care Provider] - Follow up as needed [facility] [Provider Group] - Follow up tomorrow
== END 2018-10-01 15:09 | disposition home or self-care (01) ==
LOC: ER 12:17
DX: S73.101A Unspecified sprain of right hip, initial encounter (principal); S83.91XA Sprain of unspecified site of right knee, initial encounter; S93.401A Sprain of unspecified ligament of right ankle, initial encounter; W10.9XXA Fall (on) (from) unspecified stairs and steps, initial encounter; J45.909 Unspecified asthma, uncomplicated; Z87.81 Personal history of (healed) traumatic fracture; Z98.890 Other specified postprocedural states
CPT/HCPCS: 99283; 73610; 73502; 73564; L1830; L4350

== ENCOUNTER 2018-10-05 18:59 | Emergency (ER) | payer MEDICAID ==
--- NOTE | 2018-10-05 19:50 | ER Document Report ---
ED General - General Chief Complaint: Possible Overdose Stated Complaint: POSSIBLE OVERDOSE Time Seen by Provider: 10/05/18 19:10 Notes: Patient is a 37-year old female with a past medical history of depression, anxiety, chronic pain who presents after taking 24 mg of alprazolam stating "I want to go to sleep". Patient states that she has multiple social stressors, has been feeling overwhelmed. States that she took this medication and attempt to get some good sleep but states that this was not a suicide attempt. She denies any prior history of suicide attempts. No previous suicidal ideation or psychiatric hospitalizations. She is unable to explain why she would take all of her alprazolam if this was not an attempt to harm herself. She denies any additional acute medical concerns although does relate multiple chronic medical concerns including chronic leg pain, chronic back pain which are not new or different tonight. TRAVEL OUTSIDE OF THE [place] IN LAST 30 DAYS: No - Related Data Allergies/Adverse Reactions: hydromorphone HCl [From Dilaudid] Allergy (Intermediate, Verified 10/01/18 12:19 ) thrush sulfamethoxazole [From Septra] Allergy (Intermediate, Verified 10/01/18 12:19) thrush trimethoprim [From Septra] Allergy (Intermediate, Verified 10/01/18 12:19) thrush duloxetine HCl [From Cymbalta] Allergy (Verified 10/01/18 12:19) Disorientation milnacipran HCl [From Savella] Allergy (Verified 10/01/18 12:19) Disorientation pregabalin [From Lyrica] Allergy (Verified 10/01/18 12:19) Past Medical History - General Information source: Patient - Social History Smoking Status: Never Smoker Frequency of alcohol use: None Drug Abuse: None Lives with: Alone Family History: CAD, CVA, Hyperlipidemia, Hypertension, Malignancy, Thyroid Disfunction Patient has suicidal ideation: No Patient has homicidal ideation: No - Past Medical History Cardiac Medical History: Denies: Hx Pulmonary Embolism Pulmonary Medical History: Reports: Hx Asthma - H/O YRS AGO, NOT CURRENTLY ON MEDS Denies: Hx Bronchitis, Hx COPD, Hx Pneumonia, Hx Respiratory Failure, Hx Sleep Apnea, Hx Tuberculosis Neurological Medical History: Reports: Hx Migraine, Hx Seizures - H/O BABY- FEBRILE SEIZURE. Denies: Hx Cerebrovascular Accident Renal/ Medical History: Reports: Hx Kidney Stones, Hx Ovarian Cysts, Hx Pelvic Inflammatory Disease. Denies: Hx End Stage Renal Disease, Hx Peritoneal Dialysis Malignancy Medical History: Denies: Hx Breast Cancer, Hx Cervical Cancer, Hx Lung Cancer, Hx Ovarian Cancer GI Medical History: Reports: Hx Crohn's Disease, Hx Diverticulitis, Hx Gastroesophageal Reflux Disease, Hx Irritable Bowel, Hx Colonoscopy, Hx Endoscopy. Denies: Hx Hiatal Hernia, Hx Liver Failure, Hx Pancreatitis, Hx Ulcer Musculoskeletal Medical History: Denies Hx Arthritis, Reports Hx Fibromyalgia, Denies Hx Multiple Sclerosis, Denies Hx Muscular Dystrophy, Reports Hx Musculoskeletal Deformity, Reports Hx Musculoskeletal Trauma Psychiatric Medical History: Reports: Hx Attention Deficit Hyperactivity Disorder, Hx Depression, Hx Obsessive Compulsive Disorder Denies: Hx Bipolar Disorder, Hx Dementia, Hx Post Traumatic Stress Disorder, Hx Schizophrenia Traumatic Medical History: Reports: Hx Fractures - TIB/FIB Infectious Medical History: Past Surgical History: Reports: Hx Genitourinary Surgery - Bladder Tack, Hx Hysterectomy, Hx Orthopedic Surgery - tibia plateu fx, torn miniscus, Hx Tonsillectomy - ADENOIDS. Denies: Hx Appendectomy, Hx Bowel Surgery, Hx Section, Hx Cholecystectomy, Hx Colostomy, Hx Coronary Artery Bypass Graft, Hx Gastric Bypass Surgery, Hx Herniorrhaphy, Hx Mastectomy, Hx Pacemaker , Hx Tubal Ligation - Immunizations Hx Diphtheria, Pertussis, Tetanus Vaccination: Yes Review of Systems - Review of Systems Notes: Constitutional: Negative for fever. HENT: Negative for sore throat. Eyes: Negative for visual changes. Cardiovascular: Negative for chest pain. Respiratory: Negative for shortness of breath. Gastrointestinal: Negative for abdominal pain, vomiting or diarrhea. Genitourinary: Negative for dysuria. Musculoskeletal: Positive for chronic low back pain and right leg pain Skin: Negative for rash. Neurological: Negative for headaches, weakness or numbness. 10 point ROS negative except as marked above and in HPI. Physical Exam - Vital signs Vitals: Resp Pulse Ox 15 96 10/05/18 19:07 10/05/18 19:07 Interpretation: Normal Notes: PHYSICAL EXAMINATION: GENERAL: Appears to be in emotional distress but otherwise unremarkable general presentation HEAD: Atraumatic, normocephalic. EYES: Pupils equal round and reactive to light, extraocular movements intact, sclera anicteric, conjunctiva are normal. ENT: nares patent, oropharynx clear without exudates. Moist mucous membranes. NECK: Normal range of motion, supple without lymphadenopathy LUNGS: Breath sounds clear to auscultation bilaterally and equal. No wheezes rales or rhonchi. HEART: Regular rate and rhythm without murmurs ABDOMEN: Soft, nontender, normoactive bowel sounds. No guarding, no rebound. No masses appreciated. EXTREMITIES: Normal range of motion, no pitting or edema. No cyanosis. NEUROLOGICAL: No focal neurological deficits. Moves all extremities spontaneously and on command. PSYCH: Mildly sedated, tearful, anxious SKIN: Warm, Dry, normal turgor, no rashes or lesions noted. Course - Re-evaluation Re-evalutation: 10/05/18 19:52 Patient presents after an intentional overdose on 24 mg of alprazolam. The patient states that this was not a suicide attempt, she said that he wanted to go to sleep. She does state that this was not a situation where she want to go to sleep and not wake up. She states that she is been very stressed, multiple things have been going wrong in her life including chronic pain in her right leg from a tibial plateau fracture. She has lost custody of her child, is being removed from her home and is unable to work currently. The patient despite all the stressors continues to emphasize that this was not an intentional attempt on her life. She denies any additional acute medical concerns. I have advised the patient that I think it would be most appropriate for her to remain in the emergency department and speak to our behavioral health services in the morning but that she does not currently meet involuntary treatment criteria. The patient really has a very high tolerance for benzodiazepines as she is awake, alert, coherent and shows no signs of respiratory depression, hypotension or bradycardia. The patient has agreed, will undergo medical screening labs. Her medical screening exam is otherwise unremarkable. She is cleared in for evaluation and disposition per [facility] in the morning. 10/06/18 01:12 Medical screening labs unremarkable. Patient is cleared for evaluation and disposition by [facility] in the morning. She remains on an elective stay, no IVC. - Vital Signs Vital signs: Temp Pulse Resp BP Pulse Ox 21 H 105/77 95 10/05/18 22:00 10/05/18 22:01 10/05/18 22:00 - Laboratory Result Diagrams: 10/05/18 19:05 10/05/18 19:05 Laboratory results interpreted by me: 10/05/18 10/05/18 10/05/18 19:05 19:05 20:01 RDW 14.2 H Est GFR ( Amer) 58 L Est GFR (Non-Af Amer) 48 L AST 40 H Ur Leukocyte Esterase TRACE H Salicylates < 1.0 L Acetaminophen < 10 L Discharge - Discharge Clinical Impression: Anxiety Benzodiazepine overdose Qualifiers: Encounter type: initial encounter Injury intent: accidental or unintentional Qualified Code(s): T42.4X1A - Poisoning by benzodiazepines, accidental ( unintentional), initial encounter Condition: Fair Referrals: RUBI LARSON DO [Primary Care Provider] - Follow up as needed
[2018-10-05 20:10] LABS: ALANINE AMINOTRANSFERASE 28 U/L (9-52); ALBUMIN 4.3 g/dL (3.5-5.0); ALKALINE PHOSPHATASE 94 U/L (38-126); ANION GAP 12 (5-19); ASPARTATE AMINO TRANSFERASE 40 U/L (14-36); BILIRUBIN,DIRECT 0.2 mg/dL (0.0-0.4); BILIRUBIN,TOTAL 0.3 mg/dL (0.2-1.3); BLOOD UREA NITROGEN 10 mg/dL (7-20); CALCIUM 9.3 mg/dL (8.4-10.2); CARBON DIOXIDE 29 mmol/L (22-30); CHLORIDE 101 mmol/L (98-107); GLUCOSE 106 mg/dL (75-110); SODIUM 142.4 mmol/L (137-145); TOTAL PROTEIN 7.6 g/dL (6.3-8.2)
[2018-10-05 20:11] LABS: ACETAMINOPHEN < 10 ug/mL (10-30); ALCOHOL < 10 mg/dL (NONE DETECTED); SALICYLATE < 1.0 mg/dL (2.0-20.0)
[2018-10-05 20:18] LABS: ABSOLUTE BASOPHILS # (AUTO) 0.1 10^3/uL (0.0-0.2); ABSOLUTE EOSINOPHILS # (AUTO) 0.2 10^3/uL (0.0-0.6); ABSOLUTE LYMPHOCYTES (AUTO) 2.6 10^3/uL (0.5-4.7); ABSOLUTE MONOCYTES (AUTO) 0.4 10^3/uL (0.1-1.4); ABSOLUTE NEUT (AUTO) 5.3 10^3/uL (1.7-8.2); BASOPHILS % (AUTO) 0.8 % (0-2); EOSINOPHILS % (AUTO) 2.6 % (0-6); HEMATOCRIT 39.1 % (36.0-47.0); LYMPHOCYTES % (AUTO) 30.1 % (13-45); MEAN CORPUSCULAR HEMOGLOBIN 28.4 pg (27.0-33.4); MEAN CORPUSCULAR HGB CONC 33.3 g/dL (32.0-36.0); MEAN CORPUSCULAR VOLUME 85 fl (80-97); PLATELET COUNT 431 10^3/uL (150-450); RED BLOOD COUNT 4.59 10^6/uL (3.72-5.28); RED CELL DISTRIBUTION WIDTH 14.2 % (11.5-14.0); SEGMENTED NEUTROPHILS % (AUTO) 61.5 % (42-78); TOTAL CELLS COUNTED % (AUTO) 100 %; WHITE BLOOD COUNT 8.6 10^3/uL (4.0-10.5)
[2018-10-05 20:30] LABS: APPEARANCE,URINE CLEAR; BILIRUBIN,URINE NEGATIVE (NEGATIVE); COLOR,URINE YELLOW; GLUCOSE, URINE NEGATIVE (NEGATIVE); KETONES,URINE NEGATIVE (NEGATIVE); LEUKOCYTE ESTERASE,URINE TRACE (NEGATIVE); NITRITE,URINE NEGATIVE (NEGATIVE); PROTEIN,URINE NEGATIVE (NEGATIVE); URINE SPECIFIC GRAVITY 1.018; UROBILINOGEN,URINE NEGATIVE mg/dL (<2.0)
[2018-10-05 20:44] LABS: URINE AMPHETAMINES SCREEN NEGATIVE; URINE BARBITURATES SCREEN NEGATIVE; URINE BENZODIAZEPINES SCREEN UNCONFIRMED POSITIVE; URINE COCAINE SCREEN NEGATIVE; URINE MARIJUANA (THC) SCREEN NEGATIVE; URINE METHADONE SCREEN NEGATIVE; URINE PHENCYCLIDINE SCREEN NEGATIVE
--- NOTE | 2018-10-05 22:18 | EKG REPORT ---
SEVERITY:- BORDERLINE ECG - SINUS RHYTHM BORDERLINE T ABNORMALITIES, INFERIOR LEADS : Confirmed by: Ilene Jerome MD 05-Oct-2018 22:17:53
[2018-10-06] MEDS ORDERED: KETOROLAC TROMETHAMINE 60 MG/2 ML SDV IM ONE (01:40)
[2018-10-06] MEDS ORDERED: METOCLOPRAMIDE HCL 10 MG TABLET PO ONE (01:40)
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
[2018-10-06] MEDS ORDERED: ACETAMINOPHEN 325 MG TABLET PO ONE (11:39)
[2018-10-06] MEDS ORDERED: LORAZEPAM 0.5 MG TABLET PO ONE (14:59)
--- NOTE | 2018-10-06 14:59 | ER Document Report ---
Doctor's Note Notes: 10/06/18 19:49 This is a 37-year-old female with a history of suicidal attempts in the past that presented for evaluation of what was initially reported as a possible accidental ingestion of her Xanax. She has Xanax for anxiety which she takes and has what sounds likely to have been an intentional overdose last night. Given the concern for her intentional overdose this patient has been placed on IVC and currently is awaiting placement. She denies at this time any suicidal thoughts. She is however feeling anxious. Patient will undergo transport to mental health facility, have fulfilled her M ayala forms, will administer a low dose of Ativan until she is able to be transported to her facility for her persistent anxiety and symptoms likely related to benzodiazepine withdrawal. Discharge - Discharge Clinical Impression: Anxiety Benzodiazepine overdose Qualifiers: Encounter type: initial encounter Injury intent: accidental or unintentional Qualified Code(s): T42.4X1A - Poisoning by benzodiazepines, accidental ( unintentional), initial encounter Condition: Fair Disposition: PSYCH HOSP/UNIT Referrals: RUBI LARSON DO [Primary Care Provider] - Follow up as needed
[2018-10-06 15:15] VITALS: BP 119/74
== END 2018-10-06 15:15 ==
LOC: ER 18:59
DX: F41.9 Anxiety disorder, unspecified (principal); T42.4X1A Poisoning by benzodiazepines, accidental (unintentional), initial encounter; X58.XXXA Exposure to other specified factors, initial encounter; G89.29 Other chronic pain; M79.604 Pain in right leg; M54.9 Dorsalgia, unspecified; Z88.6 Allergy status to analgesic agent; Z87.442 Personal history of urinary calculi; Z90.710 Acquired absence of both cervix and uterus
CPT/HCPCS: 93005; 99285; 96372; 36415; 80307 ×4; 84703; 85025; 80053; 81001; 93010; J3490 ×2; J1885

== ENCOUNTER 2018-11-02 19:10 | Emergency (ER) | payer MEDICAID, OTHER ==
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
[2018-11-02 22:17] LABS: ABSOLUTE BASOPHILS # (AUTO) 0.1 10^3/uL (0.0-0.2); ABSOLUTE EOSINOPHILS # (AUTO) 0.2 10^3/uL (0.0-0.6); ABSOLUTE LYMPHOCYTES (AUTO) 2.9 10^3/uL (0.5-4.7); ABSOLUTE MONOCYTES (AUTO) 0.5 10^3/uL (0.1-1.4); ABSOLUTE NEUT (AUTO) 5.8 10^3/uL (1.7-8.2); BASOPHILS % (AUTO) 0.6 % (0-2); EOSINOPHILS % (AUTO) 1.7 % (0-6); HEMATOCRIT 38.5 % (36.0-47.0); HEMOGLOBIN 12.9 g/dL (12.0-15.5); MEAN CORPUSCULAR HEMOGLOBIN 28.3 pg (27.0-33.4); MEAN CORPUSCULAR HGB CONC 33.7 g/dL (32.0-36.0); MEAN CORPUSCULAR VOLUME 84 fl (80-97); MONOCYTES % (AUTO) 4.9 % (3-13); PLATELET COUNT 422 10^3/uL (150-450); RED BLOOD COUNT 4.57 10^6/uL (3.72-5.28); RED CELL DISTRIBUTION WIDTH 14.5 % (11.5-14.0); SEGMENTED NEUTROPHILS % (AUTO) 61.8 % (42-78); TOTAL CELLS COUNTED % (AUTO) 100 %; WHITE BLOOD COUNT 9.3 10^3/uL (4.0-10.5)
[2018-11-02 22:20] LABS: APPEARANCE,URINE CLOUDY; BILIRUBIN,URINE NEGATIVE (NEGATIVE); COLOR,URINE YELLOW; GLUCOSE, URINE NEGATIVE (NEGATIVE); KETONES,URINE NEGATIVE (NEGATIVE); LEUKOCYTE ESTERASE,URINE LARGE (NEGATIVE); NITRITE,URINE NEGATIVE (NEGATIVE); PROTEIN,URINE NEGATIVE (NEGATIVE); URINE SPECIFIC GRAVITY 1.023; UROBILINOGEN,URINE NEGATIVE mg/dL (<2.0)
[2018-11-02 22:32] LABS: URINE AMPHETAMINES SCREEN UNCONFIRMED POSITIVE; URINE BARBITURATES SCREEN NEGATIVE; URINE BENZODIAZEPINES SCREEN UNCONFIRMED POSITIVE; URINE COCAINE SCREEN NEGATIVE; URINE MARIJUANA (THC) SCREEN NEGATIVE; URINE METHADONE SCREEN NEGATIVE; URINE PHENCYCLIDINE SCREEN NEGATIVE
[2018-11-02 22:37] LABS: ALANINE AMINOTRANSFERASE 27 U/L (9-52); ALBUMIN 4.7 g/dL (3.5-5.0); ALKALINE PHOSPHATASE 82 U/L (38-126); ANION GAP 15 (5-19); ASPARTATE AMINO TRANSFERASE 21 U/L (14-36); BILIRUBIN,DIRECT 0.2 mg/dL (0.0-0.4); BILIRUBIN,TOTAL 0.4 mg/dL (0.2-1.3); BLOOD UREA NITROGEN 13 mg/dL (7-20); CALCIUM 9.7 mg/dL (8.4-10.2); CARBON DIOXIDE 23 mmol/L (22-30); CHLORIDE 106 mmol/L (98-107); GLUCOSE 101 mg/dL (75-110); POTASSIUM 4.2 mmol/L (3.6-5.0); SODIUM 143.8 mmol/L (137-145); TOTAL PROTEIN 7.9 g/dL (6.3-8.2)
[2018-11-02 22:38] LABS: ACETAMINOPHEN < 10 ug/mL (10-30); ALCOHOL < 10 mg/dL (NONE DETECTED); SALICYLATE < 1.0 mg/dL (2.0-20.0)
[2018-11-03] MEDS ORDERED: ACETAMINOPHEN 325 MG TABLET PO ONE (02:42)
[2018-11-03] MEDS ORDERED: HYDROXYZINE PAMOATE 50 MG CAPSULE PO ONE (03:30)
[2018-11-03] MEDS ORDERED: QUETIAPINE FUMARATE 100 MG TABLET PO ONE (03:30)
--- NOTE | 2018-11-03 03:42 | ER Document Report ---
Doctor's Note Notes: 11/03/18 03:40 The nurse informed me the patient was becoming a little difficult to handle and that the patient wanted something to help her sleep. I reviewed her previous prescriptions in the database and found she had been on hydroxyzine 50 mg and Seroquel 600 mg at nighttime and Seroquel twice during the day. I did put an order for Vistaril 50 mg p.o. and Seroquel 400 mg p.o. Before the nurse was able to give the medication, a security assistant reported that the patient and informed her that she had taken several sleeping pills when she went into the bathroom which occurred sometime in the last several minutes. The order for the Seroquel and Vistaril was canceled. 11/03/18 04:08 The nurse informed me that she had actually located a bottle for Ambien 10 mg tablets that the patient had hidden in her bra and was able to keep it with her undetected for the past 8 hours. The bottle was filled on 10/22/2018 with 30 tablets. Patient reports she took one a day as prescribed starting on the day it was filled and took the remainder tonight. That would suggest she took a dose of 200 mg of Ambien. An order for 50 g activated charcoal orally was placed, and the room, and patient was rechecked for any other retained medications. 11/03/18 04:27 Patient refused to take the activated charcoal, so an order was entered for four -point restraint, and an NG tube to administer the activated charcoal. 11/03/18 05:05 When the patient was brought to the main ED side and placed in restraints for the NG tube, 2 more pill bottles were found within her bra. One was 1 mg alprazolam that was filled on 10/22/2018 with 80 tablets. There were 39 tablets left. The dosing was 1 tablet 2-3 times daily which means she was missing at least 11 tablets or more. Another bottle for mirtazapine 30 mg was found. There were 13 tablets of the mirtazapine and the bottle, along with 14 zolpidem 10 mg tablets by one generic infectious diseases physician, and another 10 will put him 10 mg tablets from a different generic infectious diseases physician. At this point it is impossible to know exactly what she took and how much she took after she arrived in the emergency room. She is very unhappy with our attempts to administer the activated charcoal, and is threatening to call the police. 11/03/18 05:26 At this time the nurses have still been unable to pass the NG tube or administer the activated charcoal. Patient will remain closely supervised and monitored for any possible reactions to the alleged medication ingestion. The patient is on IVC paperwork from earlier this evening. 11/03/18 05:38 I reviewed prior records in the [place] database and found the patient was here on 10/05/2018 with an alprazolam overdose. At that time she was transferred to [facility] for inpatient treatment. Unfortunately, her psychiatric provider prescribed 80 Xanax tablets on 10/22/2018, along with 10 mg zolpidem and Adderall.
[2018-11-03] MEDS ORDERED: ACTIVATED CHARCOAL 25 GM BOTTLE PO ONE (04:05)
--- NOTE | 2018-11-03 06:19 | EKG REPORT ---
SEVERITY:- BORDERLINE ECG - SINUS RHYTHM BORDERLINE T ABNORMALITIES, INFERIOR LEADS : Confirmed by: Hugo Martinez MD 03-Nov-2018 06:19:20
[2018-11-03 08:37] VITALS: BP 108/90
--- NOTE | 2018-11-03 10:03 | ER Document Report ---
Doctor's Note Notes: Patient was seen and evaluated by myself. Vital signs are stable. Patient did have some issues overnight. Patient had prescription pill bottles of Ambien, alprazolam and mirtazapine in her bra. She continued to take her medication while in the emergency department. Patient admitted to taking her pills when she went to the bathroom. Patient said that she took her normal dose. Denied taking additional pills. Pills were counted and there were pills from a different shipping lead person in the bottles. Physician was unable to determine what she ingested and how much. NG tube was unable to to be passed. Patient refused oral activated charcoal. Physician wanted patient to be closely monitored for signs of overdose. Behavioral health consulted. Awaiting their insight. 11/03/18 09:56 11/03/18 13:11 Patient evaluated by behavioral health. They feel that she is able to be discharged home. Her vital signs are stable. She denies any suicidal or homicidal ideations. We will discharge her. Discharge - Discharge Clinical Impression: Suicidal ideation, Homeless Condition: Stable Disposition: HOME, SELF-CARE Additional Instructions: You have been evaluated by both medical and behavioral health teams have been deemed appropriate for discharge. You have been offered the homeless packet which you have refused. Please contact mobile crisis if further concerns arise. You are recommended to follow-up with your outpatient mental health provider, SIND[facility], in 3-5 days for continued outpatient mental health services. DEPRESSION: Your evaluation reveals that you have mental depression. While symptoms may be vague, they often include disturbance of sleep, fatigue, loss of appetite , and general loss of interest in life. While depression may be a side effect of drugs, or a reaction to a major change in your life, many cases have no known cause. If depression is acute, and related to a major loss in your life, you can expect it to clear completely with time. If you have been depressed a long time , are prone to repeated bouts of depression or low mood, or have been thinking of suicide, get help. Depression can be treated with anti-depressant medication and counselling. Long-term depression will often take a few weeks to clear, even with appropriate medication. Follow-up care is important. SUICIDAL IDEATION: Suicidal ideation is a common medical term for thoughts about suicide, which may be as detailed as a formulated plan, without the suicidal act itself. Although most people who undergo suicidal ideation do not commit suicide, some go on to make suicide attempts. The range of suicidal ideation varies greatly from fleeting to detailed planning, role playing, and unsuccessful attempts. While thoughts about suicide are common, most people do not carry out serious actions to commit suicide. Based upon your evaluation and discussion with you, we do not believe you are currently at risk to act upon your thoughts of suicide. You have agreed to return to the Emergency Department, at any time , if you feel inclined to act upon your suicidal thoughts. FOLLOW-UP CARE: If you experience worsening or a significant change in your symptoms, notify the physician immediately or return to the Emergency Department at any time for re-evaluation. Referrals: [facility] [Outside] - Follow up in 3-5 days [facility] Crisis Team [Outside] - Follow up as needed RUBI LARSON DO [Primary Care Provider] - Follow up as needed Scribe Attestation: 11/03/18 00:19 I personally performed the services described in the documentation, reviewed and edited the documentation which was dictated to the scribe in my presence, and it accurately records my words and actions.
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
== END 2018-11-03 13:45 | disposition home or self-care (01) ==
LOC: ER 19:10
DX: R45.851 Suicidal ideations (principal); F17.210 Nicotine dependence, cigarettes, uncomplicated; Z59.0 Homelessness; F31.9 Bipolar disorder, unspecified; Z88.6 Allergy status to analgesic agent; Z88.3 Allergy status to other anti-infective agents; Z87.442 Personal history of urinary calculi; Z90.710 Acquired absence of both cervix and uterus
CPT/HCPCS: 93005; 99285; 36415; 80307 ×4; 84703; 85025; 80053; 81001; 93010; J3490 ×2

== ENCOUNTER 2018-12-18 18:34 | Emergency (ER) | payer MEDICAID ==
[2018-12-18] MEDS ORDERED: BUTALB/ACETAMINOPHEN/CAFFEINE 1 TAB EACH PO ONE (20:32)
[2018-12-18] MEDS ORDERED: ONDANSETRON 4 MG TAB.RAPDIS PO ONE (20:32)
--- NOTE | 2018-12-18 20:33 | ER Document Report ---
ED Medical Screen (RME) - General Chief Complaint: Headache Stated Complaint: HEADACHE Time Seen by Provider: 12/18/18 20:26 Mode of Arrival: Ambulatory Information source: Patient Notes: This is a 38-year-old female with a history of migraines who presents to the emergency room with a migraine headache for the past 2 days. Patient does report having a tooth extracted 1 week ago from an oral surgeon and she was initially treated with penicillin and is now on clindamycin. Patient denies any fevers. She denies any neck stiffness. She has a remote history of migraines and has taken Fioricet in the past. She does endorse nausea. She denies any chest pain, shortness of breath, abdominal pain. TRAVEL OUTSIDE OF THE [place] IN LAST 30 DAYS: No - Related Data Allergies/Adverse Reactions: hydromorphone HCl [From Dilaudid] Allergy (Intermediate, Verified 12/18/18 18:36) thrush sulfamethoxazole [From Septra] Allergy (Intermediate, Verified 12/18/18 18:36) thrush trimethoprim [From Septra] Allergy (Intermediate, Verified 12/18/18 18:36) thrush duloxetine HCl [From Cymbalta] Allergy (Verified 12/18/18 18:36) Disorientation milnacipran HCl [From Savella] Allergy (Verified 12/18/18 18:36) Disorientation pregabalin [From Lyrica] Allergy (Verified 12/18/18 18:36) Past Medical History Pulmonary Medical History: Reports: Hx Asthma - H/O YRS AGO, NOT CURRENTLY ON MEDS Neurological Medical History: Reports: Hx Migraine, Hx Seizures - H/O BABY- FEBRILE SEIZURE Renal/ Medical History: Reports: Hx Kidney Stones, Hx Ovarian Cysts, Hx Pelvic Inflammatory Disease. Denies: Hx Peritoneal Dialysis Malignancy Medical History: GI Medical History: Reports: Hx Crohn's Disease, Hx Diverticulitis, Hx Gastroesophageal Reflux Disease, Hx Irritable Bowel, Hx Colonoscopy, Hx Endoscopy Musculoskeltal Medical History: Reports Hx Fibromyalgia, Reports Hx Musculoskeletal Deformity, Reports Hx Musculoskeletal Trauma Psychiatric Medical History: Reports: Hx Attention Deficit Hyperactivity Disorder, Hx Depression, Hx Obsessive Compulsive Disorder Traumatic Medical History: Reports: Hx Fractures - TIB/FIB Infectious Medical History: Past Surgical History: Reports: Hx Genitourinary Surgery - Bladder Tack, Hx Hysterectomy, Hx Orthopedic Surgery - tibia plateu fx, torn miniscus, Hx Tonsillectomy - ADENOIDS - Immunizations Hx Diphtheria, Pertussis, Tetanus Vaccination: Yes History of Influenza Vaccine for 09/2017 - 01/2018 Season: Refused Physical Exam - Vital signs Vitals: Temp Pulse Resp BP Pulse Ox 98.3 F 94 14 138/89 H 97 12/18/18 18:50 12/18/18 18:50 12/18/18 18:50 12/18/18 18:50 12/18/18 18:50 Course - Vital Signs Vital signs: Temp Pulse Resp BP Pulse Ox 98.3 F 94 14 138/89 H 97 12/18/18 18:50 12/18/18 18:50 12/18/18 18:50 12/18/18 18:50 12/18/18 18:50 Doctor's Discharge - Discharge Referrals: RUBI LARSON DO [Primary Care Provider] - Follow up as needed
[2018-12-18 21:10] LABS: ABSOLUTE BASOPHILS # (AUTO) 0.1 10^3/uL (0.0-0.2); ABSOLUTE EOSINOPHILS # (AUTO) 0.3 10^3/uL (0.0-0.6); ABSOLUTE LYMPHOCYTES (AUTO) 3.1 10^3/uL (0.5-4.7); ABSOLUTE MONOCYTES (AUTO) 0.4 10^3/uL (0.1-1.4); ABSOLUTE NEUT (AUTO) 5.1 10^3/uL (1.7-8.2); BASOPHILS % (AUTO) 0.8 % (0-2); EOSINOPHILS % (AUTO) 3.2 % (0-6); HEMATOCRIT 39.4 % (36.0-47.0); HEMOGLOBIN 13.1 g/dL (12.0-15.5); LYMPHOCYTES % (AUTO) 35.3 % (13-45); MEAN CORPUSCULAR HEMOGLOBIN 28.1 pg (27.0-33.4); MEAN CORPUSCULAR HGB CONC 33.4 g/dL (32.0-36.0); MEAN CORPUSCULAR VOLUME 84 fl (80-97); PLATELET COUNT 466 10^3/uL (150-450); RED BLOOD COUNT 4.68 10^6/uL (3.72-5.28); RED CELL DISTRIBUTION WIDTH 13.4 % (11.5-14.0); SEGMENTED NEUTROPHILS % (AUTO) 56.7 % (42-78); TOTAL CELLS COUNTED % (AUTO) 100 %; WHITE BLOOD COUNT 8.9 10^3/uL (4.0-10.5)
[2018-12-18 21:36] LABS: ALANINE AMINOTRANSFERASE 14 U/L (9-52); ALBUMIN 4.7 g/dL (3.5-5.0); ALKALINE PHOSPHATASE 86 U/L (38-126); ANION GAP 8 (5-19); ASPARTATE AMINO TRANSFERASE 17 U/L (14-36); BILIRUBIN,DIRECT 0.4 mg/dL (0.0-0.4); BILIRUBIN,TOTAL 0.4 mg/dL (0.2-1.3); BLOOD UREA NITROGEN 14 mg/dL (7-20); CALCIUM 9.8 mg/dL (8.4-10.2); CARBON DIOXIDE 23 mmol/L (22-30); CHLORIDE 107 mmol/L (98-107); GLUCOSE 100 mg/dL (75-110); POTASSIUM 4.3 mmol/L (3.6-5.0); SODIUM 138.3 mmol/L (137-145); TOTAL PROTEIN 7.6 g/dL (6.3-8.2)
[2018-12-19] MEDS ORDERED: PROCHLORPERAZINE EDISYLATE INJ 10 MG/2 ML VIAL IV ONE (00:06)
[2018-12-19] MEDS ORDERED: KETOROLAC TROMETHAMINE INJ/PF 30 MG/1 ML SDV IV ONE (00:06)
[2018-12-19] MEDS ORDERED: DIPHENHYDRAMINE HCL 50 MG/ML VIAL IV ONE (00:07)
--- NOTE | 2018-12-19 00:10 | ER Document Report ---
ED General - General Chief Complaint: Headache Stated Complaint: HEADACHE Time Seen by Provider: 12/18/18 20:26 Mode of Arrival: Ambulatory Notes: 38-year-old female with a history of migraines who presents to the emergency room with a migraine headache for the past 2 days. Patient does report having a tooth extracted 1 week ago from an oral surgeon and she was initially treated with penicillin and is now on clindamycin. She states she also had a MRSA infection in her nares for which she was getting treated. Patient denies any fevers. She denies any neck stiffness. She has a remote history of migraines and has taken Fioricet in the past. She does endorse nausea, photophobia, and blurred vision. She denies any chest pain, shortness of breath, abdominal pain. TRAVEL OUTSIDE OF THE [place] IN LAST 30 DAYS: No - Related Data Allergies/Adverse Reactions: hydromorphone HCl [From Dilaudid] Allergy (Intermediate, Verified 12/18/18 18:36) thrush sulfamethoxazole [From Septra] Allergy (Intermediate, Verified 12/18/18 18:36) thrush trimethoprim [From Septra] Allergy (Intermediate, Verified 12/18/18 18:36) thrush duloxetine HCl [From Cymbalta] Allergy (Verified 12/18/18 18:36) Disorientation milnacipran HCl [From Savella] Allergy (Verified 12/18/18 18:36) Disorientation pregabalin [From Lyrica] Allergy (Verified 12/18/18 18:36) Past Medical History - General Information source: Patient - Social History Smoking Status: Never Smoker Frequency of alcohol use: None Drug Abuse: None Family History: CAD, CVA, Hyperlipidemia, Hypertension, Malignancy, Thyroid Disfunction Patient has suicidal ideation: No Patient has homicidal ideation: No Pulmonary Medical History: Reports: Hx Asthma - H/O YRS AGO, NOT CURRENTLY ON MEDS Neurological Medical History: Reports: Hx Migraine, Hx Seizures - H/O BABY- FEBRILE SEIZURE Renal/ Medical History: Reports: Hx Kidney Stones, Hx Ovarian Cysts, Hx Pelvic Inflammatory Disease. Denies: Hx Peritoneal Dialysis Malignancy Medical History: GI Medical History: Reports: Hx Crohn's Disease, Hx Diverticulitis, Hx Gastroesophageal Reflux Disease, Hx Irritable Bowel, Hx Colonoscopy, Hx Endoscopy Musculoskeletal Medical History: Reports Hx Fibromyalgia, Reports Hx Musculoskeletal Deformity, Reports Hx Musculoskeletal Trauma Psychiatric Medical History: Reports: Hx Attention Deficit Hyperactivity Disorder, Hx Depression, Hx Obsessive Compulsive Disorder Traumatic Medical History: Reports: Hx Fractures - TIB/FIB Infectious Medical History: Past Surgical History: Reports: Hx Genitourinary Surgery - Bladder Tack, Hx Hysterectomy, Hx Orthopedic Surgery - tibia plateu fx, torn miniscus, Hx Tonsillectomy - ADENOIDS - Immunizations Hx Diphtheria, Pertussis, Tetanus Vaccination: Yes Review of Systems - Review of Systems Constitutional: See HPI EENT: See HPI Cardiovascular: See HPI Respiratory: See HPI Gastrointestinal: See HPI Genitourinary: No symptoms reported Female Genitourinary: No symptoms reported Musculoskeletal: No symptoms reported Skin: No symptoms reported Hematologic/Lymphatic: No symptoms reported Neurological/Psychological: No symptoms reported Physical Exam - Vital signs Vitals: Temp Pulse Resp BP Pulse Ox 98.3 F 94 14 138/89 H 97 12/18/18 18:50 12/18/18 18:50 12/18/18 18:50 12/18/18 18:50 12/18/18 18:50 - Notes Notes: Reviewed vital signs and nursing note as charted by RN. CONSTITUTIONAL: Well-appearing, well-nourished, acting appropriately for age HEAD: Normocephalic, atraumatic, no swelling EYES: PERRL, Conjunctivae clear, no drainage, EOMI, no scleral icterus ENT: External ears without lesions, External auditory canal is patent, airway patent, mucous membranes pink and moist NECK: Supple, no cervical lymphadenopathy, no masses CARD: Regular rate and rhythm, no murmurs, no rubs, no gallops, capillary refill < 2 seconds, symmetric pulses RESP: The lungs are clear to auscultation bilaterally, no wheezing, no rales, no rhonchi. Respiratory rate and effort are normal, normal chest excursion. No respiratory distress, no retractions, no stridor, no nasal flaring, no accessory muscle use. ABD/GI: Normal bowel sounds, non-distended, soft, non-tender, no rebound, no guarding, no palpable organomegaly EXT: Normal ROM in all joints, non-tender to palpation, no effusions, no edema SKIN: Normal color for age and race, warm, dry, good turgor, no acute lesions noted NEURO: No facial asymmetry, moves all extremities equally, motor and sensory function intact Course - Re-evaluation Re-evalutation: 12/19/18 00:10 38-year-old female in mild distress presents to the emergency for a typical migraine headache. She states she usually keeps it under control with this time it got so severe that she had to seek treatment. She denies any neck stiffness or any focal neurologic weakness. She has been trying to take Motrin for it with no results. She received Fioricet in triage with no results. Plan is to give her a headache cocktail of Toradol, Compazine, Benadryl and assess for response. 12/19/18 00:52 Patient responded well to the headache cocktail. Patient states she wants to leave and she is stable for discharge. - Vital Signs Vital signs: Temp Pulse Resp BP Pulse Ox 98.3 F 90 16 130/90 H 93 12/18/18 18:50 12/19/18 00:00 12/19/18 00:00 12/19/18 00:00 12/19/18 00:00 - Laboratory Result Diagrams: 12/18/18 20:59 12/18/18 20:59 Laboratory results interpreted by me: 12/18/18 20:59 Plt Count 466 H Discharge - Discharge Clinical Impression: Migraine Qualifiers: Migraine type: without aura Status migrainosus presence: without status migrainosus Intractability: intractable Qualified Code(s): G43.019 - Migraine without aura, intractable, without status migrainosus Condition: Stable Disposition: HOME, SELF-CARE Instructions: Antinausea Medication ([facility]), Intravenous Compazine for Headaches ([facility]), Headache ([facility]), Use of Diphenhydramine Additional Instructions: You were seen today for a migraine headache. Please follow-up with your primary care doctor regarding today's ED visit. Return to emergency department immedia tely if you develop a headache that gets to its maximum severity within 20 minutes of onset, you pass out, you develop weakness, numbness, changes in your vision, become unable to keep any fluids down for more than 12 hours, or develop a fever greater than 100.4 degrees Fahrenheit. If you develop a similar migraine headache in the future I recommend that you immediately take 600 mg of ibuprofen and 50 mg of Benadryl and go to sleep as quickly as possible. This can often prevent your migraine headache from becoming severe. Referrals: RUBI LARSON, DO [Primary Care Provider] - Follow up as needed
[2018-12-19 00:29] VITALS: BP 130/90
== END 2018-12-19 01:13 | disposition home or self-care (01) ==
LOC: ER 18:34
DX: G43.019 Migraine without aura, intractable, without status migrainosus (principal); Z86.14 Personal history of Methicillin resistant Staphylococcus aureus infection; Z88.3 Allergy status to other anti-infective agents; Z87.442 Personal history of urinary calculi
CPT/HCPCS: 99284; 96374; 96375; 36415; 85025; 80053; J3490; J1200; S0119; J1885; J0780

== ENCOUNTER → 2020-07-22 | Outpatient (CLI) | payer MEDICAID ==
--- NOTE | 2020-07-22 14:02 | RADIOLOGY REPORT (SQ) ---
EXAM DESCRIPTION: CT RT LOWER EXTREMITY WITHOUT IMAGES COMPLETED DATE/TIME: 07/22/2020 9:48 am REASON FOR STUDY: M25.561 PAIN IN RIGHT KNEE M25.561 PAIN IN RIGHT KNEE COMPARISON: Radiographs from last year TECHNIQUE: Axial imaging performed through the right knee With reformatted coronal and sagittal imag ing windowed for bone and soft tissues. Images saved to PACS. 3D IMAGING: Were 3D images as MIP, SSD, or volume rendering performed at the work station? Yes. All CT scanners at this facility use dose modulation, iterative reconstruction, and/or weight based d osing when appropriate to reduce radiation dose to as low as reasonably achievable (ALARA). [facility]: Dose Right [facility]: CareDose [facility]: Dose Right [facility]: Teradose 4D [facility]: [employer] LIMITATIONS: None. RADIATION DOSE: CT Rad equipment meets quality standard of care and radiation dose reduction techniq ues were employed. CTDIvol: 5.0 mGy. DLP: 121 mGy-cm. mGy. FINDINGS: SOFT TISSUES: Limited assessment with CT. No suggestion of regional mass or joint effusio n or drainable fluid collection. BONES: Evidence of prior lateral tibial plateau fracture repair. Open reduction internal fixation wi th 2 transverse anterior tibial screws and methylmethacrylate. The articular surface looks minimally irregular without depression, similar compared to the radiographs. No evidence of acute fracture. No bone lesions detected. MINERALIZATION: Normal. OTHER: No other significant finding. IMPRESSION: Posttraumatic/postoperative changes as above, stable appearance compared with last year' s radiographs. No acute or suspicious finding. TECHNICAL DOCUMENTATION: JOB ID: [id number] Quality ID # [id number]: Final reports with documentation of one or more dose reduction techniques (e.g., Au tomated exposure control, adjustment of the mA and/or kV according to patient size, use of iterative reconstruction technique) 2010 [employer]- All Rights Reserved Reading location - IP/workstation name: [email or web address]
== END ==
LOC: RAD 09:27
PROVIDERS: ATTEND Orthopaedic Surgery
DX: M25.561 Pain in right knee (principal)